=== PATIENT | male | born 1935 | race Caucasian/White ===

== ENCOUNTER 2019-04-24 10:58 | Emergency (ER) | payer MEDICARE, OTHER, SELFPAY ==
[2019-04-24 10:59] VITALS: BP 122/81; PULSE 71; RESP 18; TEMP 36.4; O2SAT 100; BMI 25.4
--- NOTE | 2019-04-24 11:13 | ED.VIS.GEN ---
History of Present Illness Chief Complaint: Disclocation Informant: Patient Onset: Yesterday Context: Sudden Onset Timing: Continuous Narrative: Patient is an 83-year-old male with history of amyloidosis presenting with right shoulder pain. Yesterday he was at the [employer] center and was trying to throw a heavy bag of magazines and when he felt/heard his right shoulder pop. He immediately had pain. It hurts to move his shoulder in any direction. He denies any associated numbness or tingling. He went to see his PCP today who told him that he should go to an orthopedist. Orthopedist then said he should go to the emergency room. Patient then came here. He does not take anything for pain prior to arrival. He denies any other injuries or complaints. He denies any history of any problems with his shoulder. Past Medical History - Allergies and Home Meds Allergies/Adverse Reactions: Allergies No Known Allergies Allergy (Verified 04/24/19 11:03) Primary Care Physician: Ryan Bell III, MD [Primary Care Provider] - Past Medical History: - - Amyloidosis Surgical History: noncontributory Lives: With Family Smoking Status: Former smoker Review of Systems General: Denies: Chills, Fever, Sweats Eyes: Denies: Visual changes - bilaterally, Diplopia ENT: Denies: Rhinorrhea, Sore throat Cardiovascular: Denies: Chest pain, Palpitations Respiratory: Denies: Dyspnea, Cough, Dyspnea on exertion Gastrointestinal: Denies: Abdominal pain, Nausea, Vomiting, Diarrhea, Melena, Hematochezia Genitourinary: Denies: Dysuria, Hematuria, Frequency Musculoskeletal: Reports: Swelling - Right shoulder, Extremity Pain - Right shoulder. Denies: Back pain Skin: Denies: Rash, Wounds Neurological: Denies: Headache, Weakness, Numbness Physical Exam Vital Signs/Narrative: Vital Signs Temp Pulse Resp BP Pulse Ox 04/24/19 10:59 97.6 F L 71 18 122/81 H 100 Inital Vital Signs reviewed: Yes General: Well nourished, Well developed, No Acute Distress Head: Normocephalic, Atraumatic Eyes: Perrl, EOMI ENT: Moist mucous membranes, No rhinorrhea Neck: Supple, Nontender Cardiovascular: Regular rate, Regular rhythm, No murmurs Respiratory: No distress, CTA bilaterally, Chest nontender Abdomen: Soft, Nontender, Nondistended, Normal bowel sounds Back: Nontender, Normal Inspection Extremities: Tenderness - Mild tenderness palpation diffusely of the right shoulder, Edema - Soft tissue swelling over the lateral aspect of the right shoulder/proximal humerus, - - Decreased range of motion of the right shoulder secondary to pain in all planes. Normal range of motion of the elbow and wrist. Skin: Normal color, No rash Neurological: Alert, Oriented x3, Cranial nerves II-XII grossly intact, Normal Strength, Normal Sensation Psychological: Normal affect, Normal Mood Diagnostic/Tx/Re-eval Clinical Impression(s) from Imaging Studies Shoulder X-Ray 04/24/19 11:30 IMPRESSION: Calcific tendinitis. Degenerative changes. Electronically Signed: Zechariah Raj, at 11:55 EST , Service support , - Medical Decision Making Patient has right shoulder pain. He is right-hand dominant. It happened when he was trying to swing a heavy bag of magazines into a dumpster. He heard a popping noise. He does not have an obvious deformity of the joint but he does have significant swelling around his shoulder/proximal humerus. He does have significantly decreased range of motion secondary to pain. X-ray does not show fracture/dislocation however it does show calcific tendinitis. It is likely that he might have either tendinitis or rotator cuff injury that is causing his symptoms. I have a lower suspicion for complete tendon rupture as patient does not have a deformity in his biceps muscle. Patient has already arranged follow-up with Dr. Reis. He is encouraged to keep this and see him next week. As patient has CKD and is allergic to Tylenol he will be prescribed a short course of tramadol for his pain. He is counseled on risk of falls and confusion with this medication. Patient is counseled on signs and symptoms requiring return to the emergency room. Patient verbalizes agreement and understand this plan. Patient discharged home in stable and improved condition. ED Disposition - Plan for ED Patient: Disposition: Home or Assisted Living Diagnosis: Injury of left shoulder, Tendonitis Instructions: Tendonitis, SHOULDER PAIN (Uncertain Cause) Prescriptions: traMADol [Ultram] 50 mg PO BID PRN PRN 3 Days #6 tab PRN Reason: Pain Prescription Printed Referrals: Ryan Bell III, MD [Primary Care Provider] - Additional Instructions: You do not have a dislocation of your shoulder. I suspect you have an injury either to your biceps tendon or your rotator cuff. Your x-ray did show calcific tendinitis of the shoulder. This may also be causing your pain. Follow-up with Ortho next week. You have already been given Dr. Reis's information. Rest the shoulder but do range of motion exercises daily to prevent frozen shoulder. Apply ice. Use sling as needed for comfort. Return to emergency room if you develop any worsening symptoms, or numbness or weakness of the hand.
--- NOTE | 2019-04-24 11:30 | RAD_ITS ---
STUDY: X-RAY - RIGHT SHOULDER REASON FOR EXAM: Male, 83 years old. Pain and limited range of motion. TECHNIQUE: 3 view(s) of the shoulder. COMPARISON: None. FINDINGS: There is mild degenerative arthrosis of the glenohumeral articulation. There is hypertrophic osteoarthrosis of the acromioclavicular joint with inferior osseous spur formation. Normal acromion. Normal humeral head and visualized proximal humerus. There is periarticular soft tissue calcification consistent with a calcific tendinitis. Normal visualized pulmonary apex. RAD/Shoulder min 2 Views IMPRESSION: Calcific tendinitis. Degenerative changes. Electronically Signed: Zechariah Anthony, at 11:55 EST , Service support ,
== END 2019-04-24 12:24 | disposition home or self-care (01) ==
PROVIDERS: Emergency Provider Emergency Medicine; Family Provider Family Medicine; PCP Family Medicine
DX: S49.91XA Unspecified injury of right shoulder and upper arm, initial encounter (principal); X50.0XXA Overexertion from strenuous movement or load, initial encounter; Y93.89 Activity, other specified; Y92.89 Other specified places as the place of occurrence of the external cause; M75.31 Calcific tendinitis of right shoulder; M19.011 Primary osteoarthritis, right shoulder; Z87.891 Personal history of nicotine dependence
CPT/HCPCS: 73030; 99282

== ENCOUNTER 2019-07-20 18:04 | Emergency (ER) | payer MEDICARE, OTHER, SELFPAY ==
[2019-07-20 18:05] VITALS: BP 149/67; PULSE 74; RESP 18; TEMP 36.6; O2SAT 98; BMI 25.0
--- NOTE | 2019-07-20 18:20 | CT_ITS ---
STUDY: CT ABDOMEN AND PELVIS WITHOUT CONTRAST REASON FOR EXAM: Male, 84 years old. RT FLANK PAIN AND DIFFICULTY URINATING. Hx of kidney stones, appendectomy,cholecystectomy,3 vessel CABG, HTN and diabetes. RADIATION DOSAGE (If Supplied By Facility): CTDIvol = ( 8.09 ) mGy, DLP = ( 438.47 ) mGycm TECHNIQUE: Transaxial images were obtained from the dome of the diaphragm to the symphysis pubis without oral contrast, and without intravenous contrast. Sagittal and coronal images were reconstructed. Individualized dose optimization techniques were used for this CT. COMPARISON: None. FINDINGS: There is diffuse interstitial thickening in both lower lobes.. The heart is enlarged and there is mild calcification of coronary arteries and aortic valve leaflets Normal liver. Normal gallbladder and extrahepatic biliary system. Tiny calcified granuloma in normal-sized spleen.. Normal pancreas. Normal bilateral adrenal glands. Tiny nonobstructing calculi in the right kidney Mild right hydroureteronephrosis secondary to tiny distal ureteral calculus measuring approximately 3.5 mm. Small right renal cyst. Tiny nonobstructing left renal calculus Normal visualized stomach. Nonspecific ileus with diffuse fecal retention in the colon.. The appendix is visualized and appears normal. Atherosclerotic changes of the aorta without evidence for aneurysm. Normal inferior vena cava. Normal retroperitoneum. Nonspecific prostatic enlargement in association with incompletely distended thick-walled bladder. Small bilateral fat-containing inguinal hernias.. Lumbar spine demonstrates degenerative change. Postop changes status post bilateral laminectomy and posterior fusion at L4-5. CT/Abdomen/Pelvis without Cont IMPRESSION: Bilateral nephrolithiasis. Right hydroureteronephrosis secondary to small distal ureteral calculus Electronically Signed: Mumtaz Mitchell MD at 19:35 EDT , Service support ,
[2019-07-20] MEDS: 0.9% Normal Saline 1,000 ML 250 ML IV (18:41)
[2019-07-20 18:55] LABS: Bacteria 0 SEEN /hpf (None Seen); Mucous, Urine 0 SEEN /hpf (<or=2+); Squamous Epithelial Cells - UA 0 SEEN /hpf (0-5); White Blood Cells 0 SEEN /hpf (0-5)
[2019-07-20 19:04] LABS: Absolute Lymphocyte Count 1.18 X10^3/uL (0.83-4.51); Basophil# 0.05 X10^3/uL; Basophil% 0.6 % (0-1); Eosinophil# 0.14 X10^3/uL; Eosinophils% 1.7 % (0-5); Hematocrit 41.2 % (40-54); Hemoglobin 13.3 g/dL (13.0-16.5); Lymphocyte # 1.18 X10^3/ul (4.0); Lymphocyte % 14.5 % (19-41); Mean Corp Hgb Conc 32.3 g/dL (32-36); Mean Platelet Vol. 9.8 fl (6.2-12.0); Monocyte# 0.71 X10^3/uL; Monocyte% 8.8 % (0-10); NRBC Flagged by Analyzer 0 % (0-5); Neutrophil # 5.99 X10^3/uL (2.7-7.7); Neutrophil % 73.9 % (47-70); Platelet Count 163 K/mm3 (150-450); RBC Distribution Width CV 12.7 % (11.6-14.6); RBC Distribution Width SD 44.5 fl (35.1-43.9); Red Blood Count 4.29 M/mm3 (4.6-6.2); White Blood Count 8.1 K/mm3 (4.4-11.0)
[2019-07-20 19:12] LABS: Anion Gap 7 (5-15); BUN 20 mg/dL (7-18); BUN/Creat Ratio 15.2 RATIO (10-20); Calcium,Total 9.3 mg/dL (8.5-10.1); Chloride 96 mmol/L (98-107); Creatinine, Serum 1.32 mg/dL (0.70-1.30); EST Glomerular Filtration Rate 55 mL/min (>60); Est Glom Filt Rate - Afr Amer 66 mL/min (>60); Estimated Creatinine Clearance 37.59 ml/min; Glucose 133 mg/dL (74-106); Potassium 3.9 mmol/L (3.5-5.1); Sodium Level 133 mmol/L (136-145)
[2019-07-20 19:21] LABS: Color, Urine Yellow (Yellow); Glucose, Dipstick Normal (Normal); Ketone-Dipstick Negative (Negative); Leukocyte Esterase-Dipstick Negative /ul (Negative); Nitrite-Dipstick Negative (Negative); Occult Blood-Urine 250 /ul (Negative); Protein-Dipstick Negative (Negative); Specific Gravity, Urine 1.025 (1.002-1.030); Urine Bilirubin Dipstick Negative (Negative); Urine Clarity Clear (Clear); Urine Urobilinogen Normal (Normal)
[2019-07-20] MEDS: Ondansetron 4 MG/2 ML Vial IV (19:27)
[2019-07-20] MEDS: Morphine 4 MG/ML Syringe IV (19:27)
[2019-07-20 19:31] LABS: Calcium Oxalate Crystals Ur 1+ /hpf (<or=2+); Red Blood Cells-Urine 10-25 SEEN /hpf (0-5)
--- NOTE | 2019-07-20 19:51 | ED.VIS.GI ---
History of Present Illness Chief Complaint: Flank Pain Narrative: Patient presenting for evaluation secondary to abdominal pain. Patient reports since yesterday he has been dealing with right lower quadrant abdominal pain and right flank pain. He reports that this has gotten somewhat worse over the course of the last day. It is worse with palpation. This been associated with nausea but no vomiting and some urinary hesitancy. He denies any current hematuria although he has had a history of hematuria in the past. Denies any history of kidney stones. Patient is status post cholecystectomy. Patient denies any presence of fevers associated with this. Review of systems otherwise negative. Past Medical History - Allergies and Home Meds Allergies/Adverse Reactions: Allergies No Known Allergies Allergy (Verified 07/20/19 18:04) Primary Care Physician: Ryan Bell III, MD [Primary Care Provider] - Past Medical History: - - Hypertension, hyperlipidemia, diabetes, BPH Surgical History: noncontributory Smoking Status: Former smoker Review of Systems All systems negative except as indicated General: Denies: Chills, Fever, Sweats Eyes: Denies: Visual changes - bilaterally, Diplopia ENT: Denies: Rhinorrhea, Sore throat Cardiovascular: Denies: Chest pain, Palpitations Respiratory: Denies: Dyspnea, Cough, Dyspnea on exertion Gastrointestinal: Reports: Abdominal pain, Nausea. Denies: Vomiting, Diarrhea Genitourinary: Reports: - - Hesitancy Musculoskeletal: Denies: Back pain, Extremity Pain Skin: Denies: Rash, Wounds Neurological: Denies: Headache, Weakness, Numbness Physical Exam Vital Signs/Narrative: Vital Signs Temp Pulse Resp BP Pulse Ox 07/20/19 18:05 97.8 F 74 18 149/67 H 98 Inital Vital Signs reviewed: Yes General: Well nourished, Well developed, No Acute Distress Head: Normocephalic, Atraumatic Eyes: Perrl, EOMI ENT: Moist mucous membranes, No rhinorrhea Neck: Supple, Nontender Cardiovascular: Regular rate, Regular rhythm, Murmur - 3 out of 6 systolic murmur, - - 2+ radial pulses Respiratory: No distress, CTA bilaterally, Chest nontender Abdomen: Soft, Nondistended, Normal bowel sounds, Tender - Right lower quadrant tenderness with no guarding or rebound. Right flank tenderness to percussion. Back: Nontender, Normal Inspection Extremities: Nontender, No edema Skin: Normal color, No rash Neurological: Alert, Oriented x3, Cranial nerves II-XII grossly intact, Normal Strength, Normal Sensation Psychological: Normal affect, Normal Mood Diagnostic/Tx/Re-eval - Medical Decision Making Patient presented secondary to flank pain. Pain was addressed with morphine and Zofran he did have improvements. CBC unremarkable, chemistry shows creatinine of 1.3 with no prior creatinines for comparison. CT abdomen and pelvis by my personal review shows a 6 mm stone in the distal right ureter with hydronephrosis. Patient's pain was improved on repeat evaluation. His urinalysis shows blood but no evidence of infection. Patient at this point I believe is appropriate for initial outpatient treatment of this kidney stone. He was educated on signs and symptoms for which to return. He will be sent home with a course of [place] for treatment of pain. Patient will follow-up with urology. ED Disposition - Plan for ED Patient: Disposition: Home or Assisted Living Diagnosis: Urolithiasis Instructions: KIDNEY STONE w/ Colic Prescriptions: Hydrocodone Bitart/Apap 5-325 [[place] 5MG-325MG] 1 tab PO Q6H PRN PRN 3 Days #12 tab PRN Reason: Pain Prescription Printed Referrals: Db Kc MD [STAFF PHYSICIAN] - 3-5 Days
[2019-07-20 20:06] VITALS: BP 121/96; PULSE 73; RESP 18; O2SAT 95
== END 2019-07-20 20:11 | disposition home or self-care (01) ==
PROVIDERS: Emergency Provider Emergency Medicine; PCP Family Medicine
DX: N13.2 Hydronephrosis with renal and ureteral calculous obstruction (principal); I10 Essential (primary) hypertension; E78.5 Hyperlipidemia, unspecified; E11.9 Type 2 diabetes mellitus without complications; N40.0 Benign prostatic hyperplasia without lower urinary tract symptoms; Z79.82 Long term (current) use of aspirin; Z79.84 Long term (current) use of oral hypoglycemic drugs; Z87.891 Personal history of nicotine dependence
CPT/HCPCS: 74176; 80048; 81001; 85025; 96361; 96374; 96375; 99283; J7030; A4216; J2405

== ENCOUNTER 2020-11-28 21:18 | Inpatient (IN) | payer MEDICARE, OTHER, SELFPAY ==
[2020-11-28 21:19] VITALS: BP 133/74; PULSE 64; RESP 18; TEMP 36.2; O2SAT 98; BMI 24.2
--- NOTE | 2020-11-28 22:18 | EDS_ITS ---
HPI History of Present Illness Chief Complaint: Cellulitis Informant: patient and family Onset/Context/Timing Onset: Days Context: Gradual Onset Timing: Continuous Current Severity: Mild Maximum Severity: Mild Narrative Narrative: 85-year-old male history of cardiac disease, stent, TAVR procedure, diabetes and amyloidosis. Patient on IV placed last week at another hospital. Since Sunday has developed redness in the arm going both down his arm towards his hand now up into his armpit. Denies any fever. Prior similar symptoms: No PFSH PFSH Medical History Hypertension Home Medications Finasteride 5 mg PO DAILY 07/20/19 [History Last Taken Unknown] Tamsulosin Hcl 0.4 mg PO BID 07/20/19 [History Last Taken Unknown] aspirin 81 mg PO DAILY@0800 07/20/19 [History Last Taken Unknown] cholecalciferol (vitamin D3) 2,000 unit PO DAILY 07/20/19 [History Last Taken Unknown] coenzyme Q10 10 mg PO DAILY 07/20/19 [History Last Taken Unknown] fluticasone propionate 2 spray NASAL DAILY 07/20/19 [History Last Taken Unknown] hydrochlorothiazide 12.5 mg PO DAILY 07/20/19 [History Last Taken Unknown] levothyroxine 75 mcg PO DAILY 07/20/19 [History Last Taken Unknown] metformin 500 mg PO TIDCM 07/20/19 [History Last Taken Unknown] metoprolol tartrate 25 mg PO BID 07/20/19 [History Last Taken Unknown] nitroglycerin 0.4 mg SL PRN PRN 07/20/19 [History Last Taken Unknown] pregabalin 50 mg PO BID 07/20/19 [History Last Taken Unknown] simvastatin 20 mg PO DAILY 07/20/19 [History Last Taken Unknown] tafamidis 61 mg PO DAILY 07/20/19 [History Last Taken Unknown] clopidogrel 75 mg PO DAILY 11/28/20 [History Last Taken Unknown] Allergy/AdvReac Type Severity Reaction Status Date / Time No Known Allergies Allergy Verified 11/28/20 21:22 Social History Smoking Status: Former smoker ROS ROS ED ROS Narrative Denies recent illness. Review of Systems ROS Unobtainable: Denies due to encephalopathy Constitutional Constitutional ED: Denies chills or fever(s) Eyes Eyes: Denies change in vision ENT ENT ED: Denies ear pain or sore throat Cardiovascular Cardiovascular: Denies chest pain Respiratory/Chest Respiratory/Chest: Denies dyspnea Gastrointestinal Gastrointestinal: Denies abdominal pain Genitourinary Genitourinary ED: Denies dysuria Musculoskeletal Musculoskeletal: Denies myalgias Integumentary Reports rash Neurologic Neurologic: Denies headache(s) Psychiatric Psychiatric: Denies depression Endocrine Endocrinology: Denies polyuria Allergic/Immunologic Allergic/Immunologic ED: Denies urticaria EXAM Physical Exam Narrative Exam Narrative: Older male no acute distress vital signs stable afebrile. Family at bedside. H EENT exam unremarkable. Lungs clear to auscultation. Heart regular rhythm. Abdomen soft nontender normal bowel sounds no peritoneal signs. Moving all 4 extremities. Neurovascularly intact. His right arm and antecubital area there is definitely cellulitis which extends both distally towards the hand and lymphangitic streaking up into his armpit with lymphadenopathy and tenderness. He has normal underwriting technician strength, touch sensation and radial pulse in the right hand. There does not appear to be involvement in the shoulder, elbow or wrist joints. Const Vital Signs: 11/28/20 21:19 Temperature 97.1 F L Temperature Source Oral Pulse Rate 64 Respiratory Rate 18 Blood Pressure 133/74 H Blood Pressure Mean 93 Pulse Ox 98 Oxygen Delivery Method Room Air Positive well nourished and well developed General Appearance ED: well developed HEENT Reports moist mucous membranes Negative for trauma or tenderness Eyes PERRL and EOMs intact bilaterally Neck no lymphadenopathy, supple and no JVD General: Negative for tenderness Chest Wall inspection of chest normal and palpation of chest normal Resp normal respiratory effort and clear to auscultation bilaterally Cardio regular rate, regular rhythm, S1 normal heart sound, S2 normal heart sound and no murmurs GI normal to inspection, nondistended, normoactive bowel sounds, non-tender and non-distended Palpation: soft Back/Spine no CVA tenderness Extremity normal to inspection Extremity Narrative: Extremities unremarkable except the right arm has obvious cellulitis from just proximal to the wrist all the way up into the armpit. With lymphadenopathy and tenderness. He has normal range of motion in the hand is neurovascularly intact. Neuro oriented x3 and CN's II-XII intact bilaterally Sensorium / Orientation: alert Motor Exam: strength 5/5 throughout Psych mental status grossly normal Skin no wounds Rashes: rashes noted MDM MDM MDM Narrative Medical decision making narrative: 85-year-old male has a IV site cellulitis with lymphangitic spread. Involves most of the right arm. He will be started on IV antibiotics and labs are being obtained. Most likely will need admitted overnight. Repeat exam patient is doing well. He is already been started on IV antibiotics. No changes at 11:25 PM. I have the hospitalist on page for admission. Lab Data Attestation: I reviewed the patient's lab results. Lab results narrative: CBC White count 6. Hemoglobin 11.6 electrolytes unremarkable gap of 6. Creatinine 1.53 has a history of renal insufficiency. Labs: Laboratory Results - last 24 hr 11/28/20 11/28/20 22:28 22:28 WBC 6.8 RBC 3.81 L Hgb 11.6 L Hct 36.3 L MCV 95.3 H MCH 30.4 MCHC 32.0 RDW Std Deviation 44.8 H RDW Coeff of Dina 12.9 Plt Count 136 L MPV 9.8 Immature Gran % (Auto) 0.300 Neut % (Auto) 52.2 Lymph % (Auto) 28.6 Rankin % (Auto) 12.1 H Eos % (Auto) 5.8 H Baso % (Auto) 1.0 Absolute Neuts (auto) 3.5 Absolute Lymphs (auto) 1.93 Nucleated RBC % 0 Sodium 137 Potassium 3.8 Chloride 102 Carbon Dioxide 29.0 Anion Gap 6 BUN 25 H Creatinine 1.53 H Estim Creat Clear Calc 31.85 Est GFR (MDRD) Af Amer 56 L Est GFR (MDRD) Non-Af 46 L BUN/Creatinine Ratio 16.3 Glucose 108 H Calcium 9.5 Discharge Plan Triage Chief Complaint: Cellulitis ED Provider: Terrell Juan Dx/Rx/DC Orders Clinical Impression: Cellulitis of arm, right, Diabetes Prescriptions: No Action metformin 500 MG tablet 500 mg PO TIDCM RF: 0 coenzyme Q10 10 MG capsule 10 mg PO DAILY RF: 0 levothyroxine 75 MCG tablet 75 mcg PO DAILY RF: 0 simvastatin 20 MG tablet 20 mg PO DAILY RF: 0 hydrochlorothiazide 12.5 MG capsule 12.5 mg PO DAILY RF: 0 nitroglycerin 0.4 MG tablet, sublingual 0.4 mg SL PRN PRN (Reason: CHEST PAIN) RF: 0 aspirin 81 MG tablet,chewable 81 mg PO DAILY@0800 RF: 0 fluticasone propionate 1 SPRAY spray,suspension 2 spray NASAL DAILY RF: 0 metoprolol tartrate 25 MG tablet 25 mg PO BID RF: 0 pregabalin 50 MG capsule 50 mg PO BID RF: 0 cholecalciferol (vitamin D3) 1,000 UNIT tablet 2,000 unit PO DAILY RF: 0 tafamidis 61 MG capsule 61 mg PO DAILY RF: 0 Finasteride 5 MG tablet 5 mg PO DAILY RF: 0 Tamsulosin Hcl 0.4 MG capsule 0.4 mg PO BID RF: 0 clopidogrel 75 mg Tablet 75 mg PO DAILY RF: 0 Primary Care Provider: Adriano Bailey Referrals: Adriano Bailey MD [Primary Care Provider] - Disposition Disposition: Acute Care Hospital [facility]
[2020-11-28 22:49] LABS: Anion Gap 6 (5-15); BUN 25 mg/dL (7-18); BUN/Creat Ratio 16.3 RATIO (10-20); Calcium,Total 9.5 mg/dL (8.5-10.1); Chloride 102 mmol/L (98-107); Creatinine, Serum 1.53 mg/dL (0.70-1.30); EST Glomerular Filtration Rate 46 mL/min (>60); Est Glom Filt Rate - Afr Amer 56 mL/min (>60); Estimated Creatinine Clearance 31.85 ml/min; Glucose 108 mg/dL (74-106); Potassium 3.8 mmol/L (3.5-5.1); Sodium Level 137 mmol/L (136-145)
[2020-11-28 22:50] LABS: Absolute Lymphocyte Count 1.93 X10^3/uL (0.83-4.51); Absolute Neutrophil Count 3.5 X10^3/uL (2.0-7.7); Basophil# 0.07 X10^3/uL; Eosinophil# 0.39 X10^3/uL; Eosinophils% 5.8 % (0-5); Hematocrit 36.3 % (40-54); Hemoglobin 11.6 g/dL (13.0-16.5); Lymphocyte # 1.93 X10^3/ul (0.83-4.51); Lymphocyte % 28.6 % (19-41); Mean Corpuscular Hgb 30.4 pg (27.0-32.0); Mean Corpuscular Volume 95.3 fL (80-94); Mean Platelet Vol. 9.8 fl (6.2-12.0); Monocyte# 0.82 X10^3/uL; Monocyte% 12.1 % (0-10); NRBC Flagged by Analyzer 0 % (0-5); Neutrophil # 3.52 X10^3/uL (2.7-7.7); Neutrophil % 52.2 % (47-70); Platelet Count 136 K/mm3 (150-450); RBC Distribution Width CV 12.9 % (11.6-14.6); RBC Distribution Width SD 44.8 fl (35.1-43.9); Red Blood Count 3.81 M/mm3 (4.6-6.2); White Blood Count 6.8 K/mm3 (4.4-11.0)
[2020-11-28 23:19] VITALS: BP 125/76; PULSE 64; RESP 16; O2SAT 99
--- NOTE | 2020-11-28 23:25 | HP.PCM.HOS_ITS ---
HPI - General General Date of Admission: 11/28/20 HPI Narrative ALEXANDRE NASH, is a 85 M with an extensive PMH as outlined who presents via the ED on 11/28/2020 with a complaint of redness of his UEs. He went to an outside hospital - [facility] and had an IV line placed in his arm at another hospital ~ 1 week ago. He developed redness going down his arm towards his hand, and also upwards towards his armpit. He denied any fever and chills, and denied any shortness of breath, cough, chest pain, nausea or vomiting. REview of systems was otherwise negative. He is being admitted to be managed for cellulitis and thrombophlebitis of the LUE. Vitals were BP of 133/74, RI of 64, RR of 18 and temp of 97.1F. CBC showed wbc of 6.8 and Hb of 11.6 and platelets of 136. BMP showed sodium of 137 with K of 3.8, Cr of 1.53 but otherwise WNL. [facility] Medical History (Updated 11/29/20 @ 00:43 by Hiren Torres) Coronary artery disease CPAP (continuous positive airway pressure) dependence Former smoker Hearing loss, left Hearing loss, right Hypertension Hypothyroidism Kidney stones Sleep apnea Home Medications Finasteride 5 mg PO QHS 07/20/19 [History Last Taken 11/28/20] Tamsulosin Hcl 0.4 mg PO BID 07/20/19 [History Last Taken 11/28/20] cholecalciferol (vitamin D3) 2,000 unit PO DAILY 07/20/19 [History Last Taken 11/28/20] coenzyme Q10 10 mg PO DAILY 07/20/19 [History Last Taken 11/28/20] fluticasone propionate 2 spray NASAL DAILY 07/20/19 [History Last Taken Unknown] hydrochlorothiazide 12.5 mg PO DAILY 07/20/19 [History Last Taken 11/28/20] levothyroxine 75 mcg PO DAILY 07/20/19 [History Last Taken 11/28/20] metformin 500 mg PO TIDCM 07/20/19 [History Last Taken 11/28/20] metoprolol tartrate 25 mg PO BID 07/20/19 [History Last Taken 11/28/20] nitroglycerin 0.4 mg SL PRN PRN 07/20/19 [History Last Taken Unknown] pregabalin 50 mg PO BID 07/20/19 [History Last Taken 11/28/20] simvastatin 20 mg PO QHS 07/20/19 [History Last Taken 11/28/20] tafamidis 61 mg PO DAILY 07/20/19 [History Last Taken 11/28/20] clopidogrel 75 mg PO DAILY 11/28/20 [History Last Taken 11/28/20] Allergy/AdvReac Type Severity Reaction Status Date / Time No Known Allergies Allergy Verified 11/28/20 21:22 Surgical History (Updated 11/29/20 @ 00:43 by Hiren Torres) History of cholecystectomy History of coronary artery stent placement Hx of CABG Social History Smoking Status: Former smoker ROS Review of Systems ROS Unobtainable: Denies due to encephalopathy Constitutional Constitutional: Denies anorexia, change in weight, chills, fatigue, fever(s) or weakness Eyes Eyes: Denies double vision ENT HEENT: Denies dysphagia, hearing loss, nasal congestion or nasal discharge Cardiovascular Cardiovascular: Denies chest pain, dyspnea on exertion, edema, lightheadedness, orthopnea or palpitations Respiratory/Chest Respiratory/Chest: Denies cough, dyspnea, productive cough, shortness of breath at rest or shortness of breath with exertion Gastrointestinal Gastrointestinal: Denies abdominal pain, diarrhea, nausea or vomiting Genitourinary Genitourinary: Denies burning urination, dysuria, urinary frequency or urinary urgency Musculoskeletal Musculoskeletal: Denies arthralgias, joint swelling or neck pain Neurologic Neurologic: Denies confusion, dizziness, focal weakness, seizure-like activity or seizures Psychiatric Psychiatric: Denies anxiety or depression Endocrine Endocrinology: Denies change in body appearance Vital Signs Vital Signs Vital Signs: 11/28/20 21:19 Temperature 97.1 F L Temperature Source Oral Pulse Rate 64 Respiratory Rate 18 Blood Pressure 133/74 H Blood Pressure Mean 93 Pulse Ox 98 Oxygen Delivery Method Room Air Weight Weight: 150 lb Body Mass Index (BMI) 24.2 Physical Exam Const alert, oriented x3 and no apparent distress General Appearance: cooperative HEENT normocephalic, head/scalp atraumatic, hearing grossly normal bilaterally and moist oral mucous membranes Eyes PERRL, EOMs intact bilaterally and conjunctivae normal Neck no lymphadenopathy, supple and no carotid bruits Resp normal respiratory effort, no retractions, no use of accessory muscles and clear to auscultation bilaterally Cardio regular rate, regular rhythm, S1 normal heart sound, S2 normal heart sound and no murmurs GI normal to inspection, nondistended, normoactive bowel sounds, soft to palpation, non-tender and non-distended Extremity normal to inspection, full ROM and no clubbing, cyanosis or edema Peripheral Pulses: Yes pulses 2+ throughout Skin Skin Narrative: erythema and differential warmth over inner part RUE, extending from above the wrist all the way to the axilla, with tender lymphadenopathy in the right axilla. Neuro oriented x3 Sensorium / Orientation: awake and alert Psych affect normal Results Lab / Micro Data Result Diagrams: 11/29/20 05:44 11/29/20 05:44 Labs: Laboratory Results - last 24 hr 11/28/20 22:28: WBC 6.8, RBC 3.81 L, Hgb 11.6 L, Hct 36.3 L, MCV 95.3 H, MCH 30.4, MCHC 32.0, RDW Std Deviation 44.8 H, RDW Coeff of Dina 12.9, Plt Count 136 L, MPV 9.8, Immature Gran % (Auto) 0.300, Neut % (Auto) 52.2, Lymph % (Auto) 28.6, Marshall % (Auto) 12.1 H, Eos % (Auto) 5.8 H, Baso % (Auto) 1.0, Absolute Neuts (auto) 3.5, Absolute Lymphs (auto) 1.93, Nucleated RBC % 0 11/28/20 22:28: Sodium 137, Potassium 3.8, Chloride 102, Carbon Dioxide 29.0, Anion Gap 6, BUN 25 H, Creatinine 1.53 H, Estim Creat Clear Calc 31.85, Est GFR (MDRD) Af Amer 56 L, Est GFR (MDRD) Non-Af 46 L, BUN/Creatinine Ratio 16.3, Glucose 108 H, Calcium 9.5 Assessment & Plan Assessment/Plan (1) Cellulitis of arm, right: PLAN: # Cellulitis and thrombophlebitis of LUE * due to IV insertion last week * admit to med surg * get blood cultures * start IV unasyn * po tylenol prn for pain * #CKD 3 * CR is 1.53, baseline in system from july 2019 is 1.32 * hydate very gently with IVF * #Type 2 diabetes mellitus * hold metformin o/a of elevated Cr * Insulin sliding scale * accuchecks ACHS * #Hypertension: on metoprolol and HCTZ #BPH: on flomax DVT prophylaxis: lovenox Code status: full code * Patient counseled extensively about different types of CODE STATUS including full code, DNR CCA and DNR CCA. Patient elects to be full code. Total [id number] time 16 minutes. Charges/Coding Visit Charges Inpatient E&M: 26168 Init Hosp L3 Procedures Hospitalists Procedures: 11647 Advncd Care Plan 30 Min
[2020-11-28 23:59] VITALS: BP 125/76; PULSE 63; RESP 14; TEMP 36.3; O2SAT 99
[2020-11-29] VITALS (8 sets, daily range): BP systolic 97–134; BP diastolic 51–69; PULSE 56–68; RESP 16–18; TEMP 36.2–36.9; O2SAT 95–100; BMI 25.2
[2020-11-29] MEDS: 0.9% Normal Saline 1,000 ML 75 ML IV ×2 (00:59→15:38)
[2020-11-29 05:55] LABS: Absolute Lymphocyte Count 1.71 X10^3/uL (0.83-4.51); Absolute Neutrophil Count 3.6 X10^3/uL (2.0-7.7); Basophil# 0.05 X10^3/uL; Basophil% 0.8 % (0-1); Eosinophil# 0.42 X10^3/uL; Eosinophils% 6.4 % (0-5); Hematocrit 33.4 % (40-54); Hemoglobin 10.8 g/dL (13.0-16.5); Lymphocyte # 1.71 X10^3/ul (0.83-4.51); Lymphocyte % 25.9 % (19-41); Mean Corp Hgb Conc 32.3 g/dL (32-36); Mean Corpuscular Hgb 30.4 pg (27.0-32.0); Mean Corpuscular Volume 94.1 fL (80-94); Mean Platelet Vol. 9.6 fl (6.2-12.0); Monocyte# 0.77 X10^3/uL; Monocyte% 11.6 % (0-10); NRBC Flagged by Analyzer 0 % (0-5); Neutrophil # 3.64 X10^3/uL (2.7-7.7); Platelet Count 122 K/mm3 (150-450); RBC Distribution Width CV 12.7 % (11.6-14.6); RBC Distribution Width SD 44.2 fl (35.1-43.9); Red Blood Count 3.55 M/mm3 (4.6-6.2); White Blood Count 6.6 K/mm3 (4.4-11.0)
[2020-11-29 06:17] LABS: Anion Gap 6 (5-15); BUN 25 mg/dL (7-18); BUN/Creat Ratio 18.5 RATIO (10-20); Calcium,Total 8.8 mg/dL (8.5-10.1); Chloride 106 mmol/L (98-107); Creatinine, Serum 1.35 mg/dL (0.70-1.30); EST Glomerular Filtration Rate 53 mL/min (>60); Est Glom Filt Rate - Afr Amer 65 mL/min (>60); Glucose 92 mg/dL (74-106); Potassium 3.6 mmol/L (3.5-5.1); Sodium Level 139 mmol/L (136-145)
[2020-11-29] MEDS: Levothyroxine 75 MCG Tablet PO (06:35)
[2020-11-29 07:00] LABS: Bedside Glucose 94 mg/dL (70-110)
[2020-11-29] MEDS: Cholecalciferol (VIT D3) 25 MCG TABLET (1,000 UNITS) 50 MCG PO (08:50)
[2020-11-29] MEDS: hydroCHLOROthiazide 12.5mg 12.5 MG PO (08:50)
[2020-11-29] MEDS: Metoprolol Tartrate 25 MG Tablet PO (08:51)
[2020-11-29] MEDS: Finasteride 5 MG Tablet PO (08:51)
[2020-11-29] MEDS: Pregabalin 50 MG Capsule PO ×2 (08:54→21:30)
--- NOTE | 2020-11-29 10:29 | PCM.PN.HOSP ---
Subjective Subjective Patient was seen and examined. He denied any fever and chills. His right upper extremity swelling has improved. The redness has not gone beyond the marked borders. Objective Data Objective Data Vital Signs: Vital Signs Temp Pulse Resp BP Pulse Ox 97.7 F L 64 16 124/57 H 98 11/29/20 08:27 11/29/20 08:51 11/29/20 08:27 11/29/20 08:27 11/29/20 08:27 Oxygen Delivery Method Room Air Weight: 68.7 kg Body Mass Index (BMI) 25.2 Intake & Output: Intake and Output for Last 24 Hours 11/27/20 11/28/20 11/29/20 23:59 23:59 23:59 Intake Total 100 / 100 530.75 / 530.75 Balance 100 / 100 530.75 / 530.75 Lab / Micro Data Result Diagrams: 11/29/20 05:44 11/29/20 05:44 Labs: Laboratory Results - last 24 hr 11/28/20 22:28: WBC 6.8, RBC 3.81 L, Hgb 11.6 L, Hct 36.3 L, MCV 95.3 H, MCH 30.4, MCHC 32.0, RDW Std Deviation 44.8 H, RDW Coeff of Dina 12.9, Plt Count 136 L, MPV 9.8, Immature Gran % (Auto) 0.300, Neut % (Auto) 52.2, Lymph % (Auto) 28.6, [place] % (Auto) 12.1 H, Eos % (Auto) 5.8 H, Baso % (Auto) 1.0, Absolute Neuts (auto) 3.5, Absolute Lymphs (auto) 1.93, Nucleated RBC % 0 11/28/20 22:28: Sodium 137, Potassium 3.8, Chloride 102, Carbon Dioxide 29.0, Anion Gap 6, BUN 25 H, Creatinine 1.53 H, Estim Creat Clear Calc 31.85, Est GFR (MDRD) Af Amer 56 L, Est GFR (MDRD) Non-Af 46 L, BUN/Creatinine Ratio 16.3, Glucose 108 H, Calcium 9.5 11/29/20 05:44: WBC 6.6, RBC 3.55 L, Hgb 10.8 L, Hct 33.4 L, MCV 94.1 H, MCH 30.4, MCHC 32.3, RDW Std Deviation 44.2 H, RDW Coeff of Dina 12.7, Plt Count 122 L, MPV 9.6, Immature Gran % (Auto) 0.300, Neut % (Auto) 55.0, Lymph % (Auto) 25.9, [place] % (Auto) 11.6 H, Eos % (Auto) 6.4 H, Baso % (Auto) 0.8, Absolute Neuts (auto) 3.6, Absolute Lymphs (auto) 1.71, Nucleated RBC % 0 11/29/20 05:44: Sodium 139, Potassium 3.6, Chloride 106, Carbon Dioxide 27.0, Anion Gap 6, BUN 25 H, Creatinine 1.35 H, Estim Creat Clear Calc 34.80, Est GFR (MDRD) Af Amer 65, Est GFR (MDRD) Non-Af 53 L, BUN/Creatinine Ratio 18.5, Glucose 92, Calcium 8.8 11/29/20 06:37: POC Glucose 94 Physical Exam Narrative Physical exam: General: Alert, Oriented x3, Cooperative, No apparent distress, Well developed HEENT: Atraumatic Oral: Moist Mucosa Neck: Supple Lungs: Clear to auscultation Cardiovascular: HS I+II, regular, no murmurs Abdomen: Bowel Sounds Present, Soft, Non Tender Extremities: No edema Assessment & Plan Assessment/Plan (1) Cellulitis of arm, right: (2) Diabetes: QUALIFIERS: Diabetes mellitus type: type 2 Diabetes mellitus remote computer terminal operator insulin use: without remote computer terminal operator use Diabetes mellitus complication status: with other specified complication Qualified Code(s): E11.69 - Type 2 diabetes mellitus with other specified complication PLAN: 1. Acute cellulitis, right, improving Will continue on IV Unasyn 2. Type 2 DM, BS is controlled, continue on metformin, will continue with ISS 3. Hypertension, controlled, continue on metoprolol and HCTZ Charges/Coding Visit Charges Inpatient E&M: 33256 Subs Hosp L2
[2020-11-29] MEDS: Insulin Lispro 100 UNIT/ML INSULN.PEN SC (11:04)
[2020-11-29 11:16] LABS: Bedside Glucose 176 mg/dL (70-110)
--- NOTE | 2020-11-29 14:30 | CASEMGMT ---
MARCO ALDRICH Assessment: Face to Face with pt for initial transition planning/care coordination assessment. RN VALDEMAR introduced self and role at [facility], pt voices understanding and consents to assessment. Pt is A/O x4 and answers all questions appropriately at this time. Pt lying in bed in no distress. Care providers, pharmacy, and demographics verified/updated. Admitting Dx: cellulitis PCP: Leo Specialists: Sarah Elaine Pharmacy: [facility] Insurance: Alicia DANGELO Sr Supp Prescription Benefit: yes, pt [facility] LW/HPOA: Pt denies having a LW/DPOA. LNOK: Jeannie Tanger Living Arrangements: Pt lives with sig other and sig other's mother in a single story house with 2-3 steps to enter without rail. Pt states he is I in ADL's and denies concerns at home. Transportation: Pt drives self and denies concerns with transportation. DME/HHC/SNF: Pt states he has a CPAP without O2. States he [facility] the [facility]. Pt denies previous HHC or SNF stays and laughs at the question. Pt states he has horses and wants to get back home to tend to them. Pt states no concerns with going home at time of dc. Pt states no further concerns/needs. CM to follow. Advised pt to ask CM if any further question/concerns/needs arise, voices understanding. Pt Goal: Home Plan: Home
[2020-11-29 16:20] LABS: Bedside Glucose 105 mg/dL (70-110)
[2020-11-29] MEDS: metFORMIN HCl 500 MG Tablet PO (17:50)
[2020-11-29] MEDS: Tamsulosin HCl 0.4 MG Capsule PO (17:50)
[2020-11-29] MEDS: Docusate Sodium 100 MG Capsule PO (21:29)
[2020-11-29] MEDS: Atorvastatin Calcium 10 MG Tablet PO (21:29)
[2020-11-29] MEDS: Fluticasone 0.05% 1 SPRAY NASAL.SRY 2 SPRAY NASAL (21:29)
[2020-11-29] MEDS: MELATONIN 3 MG TABLET PO (21:30)
[2020-11-29] MEDS: Clopidogrel Bisulfate 75 MG Tablet PO (21:30)
[2020-11-29 21:50] LABS: Bedside Glucose 145 mg/dL (70-110)
[2020-11-30 02:26] VITALS: BP 97/52; PULSE 63; RESP 16; TEMP 36.8; O2SAT 97
[2020-11-30] MEDS: Levothyroxine 75 MCG Tablet PO (06:22)
[2020-11-30 06:40] LABS: Bedside Glucose 103 mg/dL (70-110)
[2020-11-30 09:10] VITALS: BP 121/63; PULSE 78; RESP 16; TEMP 36.6; O2SAT 99
[2020-11-30 09:14] VITALS: PULSE 76
[2020-11-30] MEDS: hydroCHLOROthiazide 12.5mg 12.5 MG PO (09:14)
[2020-11-30] MEDS: Metoprolol Tartrate 25 MG Tablet PO (09:14)
[2020-11-30] MEDS: Cholecalciferol (VIT D3) 25 MCG TABLET (1,000 UNITS) 50 MCG PO (09:15)
[2020-11-30] MEDS: Finasteride 5 MG Tablet PO (09:15)
[2020-11-30] MEDS: metFORMIN HCl 500 MG Tablet PO (09:18)
[2020-11-30] MEDS: Pregabalin 50 MG Capsule PO (09:19)
--- NOTE | 2020-11-30 09:20 | PCM.DC ---
Discharge Instructions Diet Discharge Diet: Low fat / Low cholesterol, 1800 Calorie Control Diet and 2000 mg Sodium Diet Activity Discharge Activity: Return to Normal Activity Follow Up Care Test Results: Test results from this visit will be discussed in further detail at your follow-up appointment, if applicable. Discharge Plan Admission Admit Date/Time: 11/28/20 23:37 Primary Reason for Your Visit: Acute left upper extremity cellulitis Attending Provider: Abigail Rouse Primary Care Provider: Adriano Bailey Instructions Additional Instructions / Restrictions: Complete your antibiotics. Let your primary care doctor know if you have recurrence of the redness in your upper extremity of fever or chills. Continue to keep active. Follow-up with your primary care doctor within 1 to 2 weeks. Discharge Orders/Prescriptions Prescriptions: New amoxicillin-pot clavulanate [Augmentin] 500-125 mg tablet 1 tab PO BID Qty: 12 RF: 0 Continued metformin 500 MG tablet 500 mg PO TIDCM RF: 0 coenzyme Q10 10 MG capsule 10 mg PO DAILY RF: 0 levothyroxine 75 MCG tablet 75 mcg PO DAILY RF: 0 simvastatin 20 MG tablet 20 mg PO QHS RF: 0 hydrochlorothiazide 12.5 MG capsule 12.5 mg PO DAILY RF: 0 nitroglycerin 0.4 MG tablet, sublingual 0.4 mg SL PRN PRN (Reason: CHEST PAIN) RF: 0 fluticasone propionate 1 SPRAY spray,suspension 2 spray NASAL DAILY RF: 0 metoprolol tartrate 25 MG tablet 25 mg PO BID RF: 0 pregabalin 50 MG capsule 50 mg PO BID RF: 0 cholecalciferol (vitamin D3) 1,000 UNIT tablet 2,000 unit PO DAILY RF: 0 tafamidis 61 MG capsule 80 mg PO DAILY RF: 0 Finasteride 5 MG tablet 5 mg PO QHS RF: 0 Tamsulosin Hcl 0.4 MG capsule 0.4 mg PO BID RF: 0 clopidogrel 75 mg Tablet 75 mg PO DAILY RF: 0 docusate sodium 100 mg Tablet 100 mg PO DAILY RF: 0 Referrals / Follow Up: Adriano Bailey MD [Primary Care Provider] - Within 2 Weeks Disposition Disposition (needs filled in before D/C Order can be placed): Home, Self Care
--- NOTE | 2020-11-30 10:11 | DS.PCM_ITS ---
Providers Date of Admission: 11/28/20 Date of Discharge: 11/30/20 Primary Care Physician: Dr. Adriano Bailey MD Reason For Visit: CELLULILTIS Diagnosis Discharge Diagnosis (1) Cellulitis of arm, right: Status: Resolved Code(s): L03.113 - Cellulitis of right upper limb (2) Diabetes: Status: Chronic Code(s): E11.9 - Type 2 diabetes mellitus without complications Qualifiers: Diabetes mellitus complication status: with other specified complication Diabetes mellitus continuous churn buttermaker insulin use: without half-way use Diabetes julianne fall type: type 2 Qualified Code(s): E11.69 - Type 2 diabetes mellitus with other specified complication Medications at Discharge Home Medications Finasteride 5 mg PO QHS 07/20/19 Tamsulosin Hcl 0.4 mg PO BID 07/20/19 cholecalciferol (vitamin D3) 2,000 unit PO DAILY 07/20/19 coenzyme Q10 10 mg PO DAILY 07/20/19 fluticasone propionate 2 spray NASAL DAILY 07/20/19 hydrochlorothiazide 12.5 mg PO DAILY 07/20/19 levothyroxine 75 mcg PO DAILY 07/20/19 metformin 500 mg PO TIDCM 07/20/19 metoprolol tartrate 25 mg PO BID 07/20/19 nitroglycerin 0.4 mg SL PRN PRN 07/20/19 pregabalin 50 mg PO BID 07/20/19 simvastatin 20 mg PO QHS 07/20/19 tafamidis 80 mg PO DAILY 07/20/19 clopidogrel 75 mg PO DAILY 11/28/20 docusate sodium 100 mg PO DAILY 11/29/20 amoxicillin-pot clavulanate [Augmentin] 1 tab PO BID #12 tab 11/30/20 Hospital Course Operations None Procedures None Summary of Care Provided Minutes Spent on Discharge: 45 Hospital Course: 85-year-old male with multiple comorbidities who presented with redness of his right upper extremity. He was recently in an outside hospital and had an IV line placed in his. He developed redness going up his towards his hand ended up his armpit. He was admitted to the [facility] floor managed on IV Unasyn for cellulitis and thrombophlebitis of the RUE. Patient continued to improve. He was discharged on Augmentin to complete 1 week treatment. Follow-up with his primary care doctor in the outpatient. Physical Exam Narrative Physical exam: General: Alert, Oriented x3, Cooperative, No apparent distress, Well developed HEENT: Atraumatic Oral: Moist Mucosa Neck: Supple Lungs: Clear to auscultation Cardiovascular: HS I+II, regular, no murmurs Abdomen: Bowel Sounds Present, Soft, Non Tender Extremities: No edema, erythema of right upper extremity Weight / BMI Weight Weight: 68.7 kg Body Mass Index (BMI) 25.2 ABG / Lab / Microbiology Data Result Diagrams: 11/29/20 05:44 11/29/20 05:44 Laboratory: Laboratory Results - last 24 hr 11/29/20 11:01: POC Glucose 176 H 11/29/20 16:05: POC Glucose 105 11/29/20 21:27: POC Glucose 145 H 11/30/20 06:24: POC Glucose 103 D/C Instructions Discharge Diet: Low fat / Low cholesterol, 1800 Calorie Control Diet and 2000 mg Sodium Diet Meaningful Use Info Meaningful Use Diagnoses (Choose all that apply): None applicable Discharge Plan Admission Admit Date/Time: 11/28/20 23:37 Primary Reason for Your Visit: Acute left upper extremity cellulitis Attending Provider: Abigail Rouse Primary Care Provider: Adriano Bailey Instructions Additional Instructions / Restrictions: Complete your antibiotics. Let your primary care doctor know if you have recurrence of the redness in your upper extremity of fever or chills. Continue to keep active. Follow-up with your primary care doctor within 1 to 2 weeks. Discharge Orders/Prescriptions Prescriptions: New amoxicillin-pot clavulanate [Augmentin] 500-125 mg tablet 1 tab PO BID Qty: 12 RF: 0 Continued metformin 500 MG tablet 500 mg PO TIDCM RF: 0 coenzyme Q10 10 MG capsule 10 mg PO DAILY RF: 0 levothyroxine 75 MCG tablet 75 mcg PO DAILY RF: 0 simvastatin 20 MG tablet 20 mg PO QHS RF: 0 hydrochlorothiazide 12.5 MG capsule 12.5 mg PO DAILY RF: 0 nitroglycerin 0.4 MG tablet, sublingual 0.4 mg SL PRN PRN (Reason: CHEST PAIN) RF: 0 fluticasone propionate 1 SPRAY spray,suspension 2 spray NASAL DAILY RF: 0 metoprolol tartrate 25 MG tablet 25 mg PO BID RF: 0 pregabalin 50 MG capsule 50 mg PO BID RF: 0 cholecalciferol (vitamin D3) 1,000 UNIT tablet 2,000 unit PO DAILY RF: 0 tafamidis 61 MG capsule 80 mg PO DAILY RF: 0 Finasteride 5 MG tablet 5 mg PO QHS RF: 0 Tamsulosin Hcl 0.4 MG capsule 0.4 mg PO BID RF: 0 clopidogrel 75 mg Tablet 75 mg PO DAILY RF: 0 docusate sodium 100 mg Tablet 100 mg PO DAILY RF: 0 Referrals / Follow Up: Adriano Bailey MD [Primary Care Provider] - Within 2 Weeks Disposition Disposition (needs filled in before D/C Order can be placed): Home, Self Care Charges/Coding Visit Charges Inpatient E&M: 47310 Disch Hosp
--- NOTE | 2020-11-30 11:07 | PHA.DC.MC ---
Pharmacy Service has performed discharge medication reconciliation and counseling for this patient. 1. AUGMENTIN 500MG PO BID X 6 DAYS The patient's discharge medication list was reviewed for discrepancies and discrepancies were resolved. Home Medications Finasteride 5 mg PO QHS 07/20/19 Tamsulosin Hcl 0.4 mg PO BID 07/20/19 cholecalciferol (vitamin D3) 2,000 unit PO DAILY 07/20/19 coenzyme Q10 10 mg PO DAILY 07/20/19 fluticasone propionate 2 spray NASAL DAILY 07/20/19 hydrochlorothiazide 12.5 mg PO DAILY 07/20/19 levothyroxine 75 mcg PO DAILY 07/20/19 metformin 500 mg PO TIDCM 07/20/19 metoprolol tartrate 25 mg PO BID 07/20/19 nitroglycerin 0.4 mg SL PRN PRN 07/20/19 pregabalin 50 mg PO BID 07/20/19 simvastatin 20 mg PO QHS 07/20/19 tafamidis 80 mg PO DAILY 07/20/19 clopidogrel 75 mg PO DAILY 11/28/20 docusate sodium 100 mg PO DAILY 11/29/20 amoxicillin-pot clavulanate [Augmentin] 1 tab PO BID #12 tab 11/30/20 The patient was counseled on the following discharge medications and changes in medications for homegoing were reviewed. The Reason for Use, instructions for use, and potential side effects were reviewed for all new medications. The patient's questions regarding all of their medications were answered. The patient was able to verbally demonstrate an understanding of their discharge medications.
== END 2020-11-30 11:12 | disposition home or self-care (01) | DRG 868 ==
LOC: ED 23:39 → MS3 23:59
PROVIDERS: Admitting Provider Student in an Organized Health Care Education/Training Program; Emergency Provider Emergency Medicine; PCP Family Medicine; Visit Provider Internal Medicine
DX: T80.29XA Infection following other infusion, transfusion and therapeutic injection, initial encounter (principal); L03.113 Cellulitis of right upper limb; T80.1XXA Vascular complications following infusion, transfusion and therapeutic injection, initial encounter; I80.8 Phlebitis and thrombophlebitis of other sites; Y84.8 Other medical procedures as the cause of abnormal reaction of the patient, or of later complication, without mention of misadventure at the time of the procedure; E11.69 Type 2 diabetes mellitus with other specified complication; I25.10 Atherosclerotic heart disease of native coronary artery without angina pectoris; E03.9 Hypothyroidism, unspecified; I12.9 Hypertensive chronic kidney disease with stage 1 through stage 4 chronic kidney disease, or unspecified chronic kidney disease; N18.31 Chronic kidney disease, stage 3a; N40.0 Benign prostatic hyperplasia without lower urinary tract symptoms; Z95.1 Presence of aortocoronary bypass graft; Z95.5 Presence of coronary angioplasty implant and graft; Z79.02 Long term (current) use of antithrombotics/antiplatelets; Z79.84 Long term (current) use of oral hypoglycemic drugs; Z79.890 Hormone replacement therapy; Z79.899 Other long term (current) drug therapy; Z87.891 Personal history of nicotine dependence
CPT/HCPCS: 36415; 80048; 82962; 85025; 87040; 97166; 99284; J7030; J7050; A4216; J0295

== ENCOUNTER 2023-04-15 13:46 | Observation (INO) | payer MEDICARE, OTHER, SELFPAY ==
[2023-04-15] VITALS (7 sets, daily range): BP systolic 103–114; BP diastolic 57–76; PULSE 45–58; RESP 15–16; TEMP 36.4–36.6; O2SAT 95–99; BMI 23.8; BMI 24.1
--- NOTE | 2023-04-15 13:55 | ED.VIS.CHEST ---
HPI History of Present Illness Chief Complaint: Chest Pain Informant: patient Onset/Context/Timing Onset: Today Activity at onset: gradual Timing: Intermittent Quality: Positive for - (Cramping) Location: Substernal and - (And upper back) Worsened By: Exertion Relieved By: Rest Associated Symptoms: Positive for Dyspnea and Lightheadedness; Negative for Nausea, Vomiting, Diaphoresis, Cough, Fever, Acid Reflux or Palpitations Narrative Narrative: Patient presents with pain in his upper chest and upper back that began today. Patient states he was doing some work outside cleaning up after horses when he started getting pain in his upper back. Patient describes it as cramping. Patient states it got better when he stopped and rested. Patient states he checked his blood pressure at home and it was in the 110s over 50. Patient noted that his heart rate was in the 40s at that time. Patient admits to some mild shortness of breath and lightheadedness when he had the pain. Patient denies any recent fevers or chills. [facility] Medical History Coronary artery disease CPAP (continuous positive airway pressure) dependence Former smoker Hearing loss, left Hearing loss, right Hypertension Hypothyroidism Kidney stones Sleep apnea Home Medications Finasteride 5 mg PO QHS BPH 07/20/19 [History Last Taken 11/28/20] Tamsulosin Hcl 0.4 mg PO BID BPH 07/20/19 [History Last Taken 04/14/23] cholecalciferol (vitamin D3) 25 mcg (1,000 unit) tablet 2,000 unit PO DAILY supplement 07/20/19 [History Last Taken 04/15/23] coenzyme Q10 10 mg capsule 10 mg PO DAILY cholesterol 07/20/19 [History Last Taken 04/15/23] fluticasone propionate 50 mcg/actuation nasal spray,suspension 2 spray NASAL DAILY 07/20/19 [History Last Taken 04/14/23] levothyroxine 75 mcg tablet 75 mcg PO DAILY supplement 07/20/19 [History Last Taken 04/15/23] metoprolol tartrate 25 mg tablet 25 mg PO DAILY blood pressure 07/20/19 [History Last Taken 04/15/23] nitroglycerin 0.4 mg sublingual tablet 0.4 mg SL PRN PRN CHEST PAIN 03/08/20 [History Last Taken Unknown] tafamidis 61 mg capsule 80 mg PO DAILY heart 07/20/19 [History Last Taken 04/15/23] clopidogrel 75 mg tablet 75 mg PO DAILY blood thinner 11/28/20 [History Last Taken 04/15/23] docusate sodium 100 mg tablet 100 mg PO DAILY constipation 11/29/20 [History Last Taken 04/15/23] furosemide 20 mg tablet 20 mg PO DAILY 04/15/23 [History Last Taken 04/15/23] ipratropium bromide 42 mcg (0.06 %) nasal spray 2 spray intranasal BID 04/15/23 [History Last Taken 04/15/23] pantoprazole 20 mg tablet,delayed release (Protonix) 20 mg PO DAILY 04/15/23 [History Last Taken 04/15/23] pregabalin 25 mg capsule (Lyrica) 25 mg PO BID 04/15/23 [History Last Taken 04/15/23] rosuvastatin 40 mg tablet (Crestor) 40 mg PO DAILY 04/15/23 [History Last Taken 04/14/23] Allergy/AdvReac Type Severity Reaction Status Date / Time No Known Allergies Allergy Verified 11/28/20 21:22 Surgical History History of cholecystectomy History of coronary artery stent placement Hx of CABG Social History Smoking Status: Former smoker ROS ROS ED Constitutional Constitutional ED: Denies chills or fever(s) Eyes Eyes: Denies blurry vision or change in vision ENT ENT ED: Reports rhinorrhea; Denies sore throat Cardiovascular Cardiovascular: Reports as per HPI and chest pain; Denies palpitations Respiratory/Chest Respiratory/Chest: Reports dyspnea; Denies cough Gastrointestinal Gastrointestinal: Denies nausea or vomiting Genitourinary Genitourinary ED: Denies dysuria or hematuria Musculoskeletal Musculoskeletal: Reports back pain and neck pain Integumentary Denies abscess or rash Neurologic Neurologic: Denies headache(s) or weakness Allergic/Immunologic Allergic/Immunologic ED: Denies mouth swelling or urticaria EXAM Physical Exam Const Vital Signs: 04/15/23 13:47 04/15/23 13:57 04/15/23 13:57 Temperature 97.6 F L Temperature Source Temporal Pulse Rate 57 L 58 L Respiratory Rate 16 16 Blood Pressure 114/60 Blood Pressure Mean 78 Pulse Ox 97 99 Oxygen Delivery Method Room Air Room Air Room Air 04/15/23 15:06 Temperature Temperature Source Pulse Rate 57 L Respiratory Rate 16 Blood Pressure 105/57 L Blood Pressure Mean 73 Pulse Ox 99 Oxygen Delivery Method Room Air Positive well nourished and well developed General Appearance ED: well developed and NAD HEENT Reports moist mucous membranes Neck supple and no JVD Chest Wall inspection of chest normal and palpation of chest normal Resp normal respiratory effort and clear to auscultation bilaterally Cardio regular rate and regular rhythm GI soft to palpation, non-tender and non-distended Neuro oriented x3, CN's II-XII intact bilaterally and no sensory deficits noted Sensorium / Orientation: awake and alert Motor Exam: strength 5/5 throughout Psych mental status grossly normal Heart Score History: Moderately Suspicious ECG: Nonspecific Repolarization Age: >/= 65 years Risk Factors: >/= 3 Risk Factors or History of CAD Troponin: </= Normal Limit Score: 6 MDM MDM MDM Narrative Medical decision making narrative: Differential diagnosis includes cardiac dysrhythmia, cardiac ischemia, electrolyte abnormality, pneumonia, pneumothorax, and musculoskeletal pain. EKG will be obtained to assess for cardiac dysrhythmia and cardiac ischemia. Chest x-ray will be obtained to assess for pneumonia and pneumothorax and widened mediastinum. CBC will be obtained to assess for leukocytosis and anemia. Basic metabolic profile will be obtained to assess for electrolyte abnormality and renal function. High-sensitivity troponin will be obtained to assess for cardiac ischemia. 2-hour repeat high-sensitivity troponin will be obtained to assess for ongoing cardiac ischemia. History & Record Review Additional record(s) reviewed:: Prior labs Lab Data Attestation: I reviewed the patient's lab results. Lab results narrative: CBC was reviewed. There is a mild anemia with a hemoglobin of 12.1 and hematocrit of 38.0. This is consistent with prior results. Basic metabolic profile was reviewed. BUN was 30 and creatinine was 1.54. These are consistent with prior results. Glucose was slightly elevated at 126. Anion gap was normal. High-sensitivity troponin was reviewed and was normal at 53. 2-hour repeat high-sensitivity troponin was reviewed and was normal at 66. Labs: Laboratory Results - last 24 hr 04/15/23 04/15/23 13:55 16:35 WBC 6.2 RBC 3.87 L Hgb 12.1 L Hct 38.0 L MCV 98.2 H MCH 31.3 MCHC 31.8 L RDW Std Deviation 45.1 H RDW Coeff of Dina 12.6 Plt Count 95 L MPV 10.7 Immature Gran % (Auto) 0.200 Neut % (Auto) 59.6 Lymph % (Auto) 26.3 Rankin % (Auto) 10.7 H Eos % (Auto) 2.6 Baso % (Auto) 0.6 Absolute Neuts (auto) 3.7 Absolute Lymphs (auto) 1.62 Nucleated RBC % 0 Differential Comment SCANNED Platelet Estimate MOD DEC Sodium 136 Potassium 3.7 Chloride 102 Carbon Dioxide 32.0 Anion Gap 2 L BUN 30 H Creatinine 1.54 H Estim Creat Clear Calc 30.50 Est GFR (MDRD) Af Amer 55 L Est GFR (MDRD) Non-Af 46 L BUN/Creatinine Ratio 19.5 Glucose 126 H Calcium 8.9 Troponin I High Sens 53 66 Radiography Chest X-Ray - ED: 1 View, Read by ED Physician, Read by Radiologist and No Acute Disease Diagnostic Testing: Clinical Impression(s) from Imaging Studies Chest X-Ray 04/15/23 14:12 IMPRESSION: No acute findings in the chest. Electronically Signed: Javi Navarro MD at 14:57 EST , Portable 1 view chest x-ray was obtained. On my independent interpretation, lung garay are clear. There is normal cardiac silhouette. Bony thorax is normal. There is no acute process noted. Radiologist also interpreted the x-ray and agrees. EKG Initial EKG: Interpretation: Sinus Bradycardia (54 with first-degree AV block), RBBB and Non-Specific ST Changes Comments: EKG was obtained. On my independent interpretation, shows sinus bradycardia with a first-degree AV block with a rate of 54. There are occasional PACs noted. There is a right bundle branch block pattern noted. There is left axis deviation at -72. MS interval was prolonged at 266 ms. QRS interval was prolonged at 152 ms. QTc interval was 464 ms. There are nonspecific ST-T wave changes noted. Prior EKG tracings: not available for review Prior: No Prior Management Discussion w/another healthcare provider: Hospitalist Treatment and Re-Evaluation :: Patient was given aspirin here. Patient was advised of his findings. Patient has a HEART score of 6. Because of this, I recommended admission to the hospital. Case will be discussed with the hospitalist. Will admit the patient to his service. Patient understood and was agreeable with the plan. All questions were answered. Discharge Plan Dx/Rx/DC Orders Clinical Impression: Diabetes, Chest pain, Hypertension Disposition Disposition: Acute Care Hospital [facility]
--- NOTE | 2023-04-15 14:12 | RAD_ITS ---
EXAM: XR CHEST, 1 VIEW CLINICAL INDICATION: chest pain TECHNIQUE: Frontal view of the chest. COMPARISON: No relevant prior studies available. FINDINGS: LUNGS AND PLEURAL SPACES: Unremarkable. No consolidation or edema. No pneumothorax. No effusion. HEART: Unremarkable. Cardiac silhouette not enlarged. MEDIASTINUM: Central airways and mediastinal contour are unremarkable. BONES/JOINTS: Elevated right humeral head with eburnation of the acromion suggest a chronic rotator cuff tear. Multiple median sternotomy wires are noted consistent for cardiac surgery. Degenerative findings in the shoulders. No acute fracture. SOFT TISSUES: Unremarkable. RAD/Chest 1 View (Portable) IMPRESSION: No acute findings in the chest. Electronically Signed: Javi Navarro MD at 14:57 EST Reading Location ID and State: [facility] / [place] , Service support ,
--- NOTE | 2023-04-15 14:12 | EKG12_ITS ---
Test Reason : Blood Pressure : / mmHG Vent. Rate : 054 BPM Atrial Rate : 054 BPM P-R Int : 266 ms QRS Dur : 152 ms QT Int : 490 ms P-R-T Axes : 047 -72 063 degrees QTc Int : 464 ms Sinus bradycardia with 1st degree A-V block with Premature supraventricular complexes Left axis deviation Right bundle branch block Inferior infarct , age undetermined Anteroseptal infarct , age undetermined Abnormal ECG Confirmed by ANIBAL RODRIGUEZ, HERBIE ([id number]), news videotape editor NAYANA FITZGERALD ([id number]) on 04/16/2023 10:59:50 AM Referred By: FINESSE Confirmed By:HERBIE BARNETT MD
[2023-04-15 14:31] LABS: Absolute Lymphocyte Count 1.62 X10^3/uL (0.83-4.51); Absolute Neutrophil Count 3.7 X10^3/uL (2.0-7.7); Basophil# 0.04 X10^3/uL; Basophil% 0.6 % (0-1); Eosinophil# 0.16 X10^3/uL; Eosinophils% 2.6 % (0-5); Hemoglobin 12.1 g/dL (13.0-16.5); Lymphocyte # 1.62 X10^3/ul (0.83-4.51); Lymphocyte % 26.3 % (19-41); Mean Corp Hgb Conc 31.8 g/dL (32-36); Mean Corpuscular Hgb 31.3 pg (27.0-32.0); Mean Corpuscular Volume 98.2 fL (80-94); Mean Platelet Vol. 10.7 fl (6.2-12.0); Monocyte# 0.66 X10^3/uL; Monocyte% 10.7 % (0-10); NRBC Flagged by Analyzer 0 % (0-5); Neutrophil # 3.67 X10^3/uL (2.7-7.7); Neutrophil % 59.6 % (47-70); POSITIVE COUNT YES; Platelet Count 95 K/mm3 (150-450); RBC Distribution Width CV 12.6 % (11.6-14.6); RBC Distribution Width SD 45.1 fl (35.1-43.9); Red Blood Count 3.87 M/mm3 (4.6-6.2); White Blood Count 6.2 K/mm3 (4.4-11.0)
[2023-04-15 14:33] LABS: Differential Indicated SCAN CRITERIA MET
[2023-04-15] MEDS: Aspirin 81 MG TAB.CHEW 324 MG PO (14:38)
[2023-04-15 14:43] LABS: Anion Gap 2 (5-15); BUN 30 mg/dL (7-18); BUN/Creat Ratio 19.5 RATIO (10-20); Calcium,Total 8.9 mg/dL (8.5-10.1); Chloride 102 mmol/L (98-107); Creatinine, Serum 1.54 mg/dL (0.70-1.30); EST Glomerular Filtration Rate 46 mL/min (>60); Est Glom Filt Rate - Afr Amer 55 mL/min (>60); Glucose 126 mg/dL (74-106); Potassium 3.7 mmol/L (3.5-5.1); Sodium Level 136 mmol/L (136-145); Troponin-I HS (w/2H Reflex) 53 pg/mL (3.0-78.0)
[2023-04-15 14:48] LABS: Differential Comment SCANNED; Platelet Estimate MOD DEC (ADEQ)
[2023-04-15 16:22] LABS: Reflex Troponin-HS? (from REC) Y
[2023-04-15 16:59] LABS: Troponin-I HS 66 pg/mL (3.0-78.0)
--- NOTE | 2023-04-15 17:15 | PCM.HP.STD ---
HPI - General General Date of Admission: 04/15/23 Date of Service: 04/15/23 Chief Complaint: Chest pain, ACS rule out HPI Narrative ALEXANDRE NASH, is a 87 M who presented to [facility] ED on 04/15/2023 with chest pain. Patient seen at bedside in the ED. Patient was laying comfortably in bed, conversing normally, no acute distress. Patient appears somewhat younger than stated age and is very active at baseline. 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 Patient states that he was cleaning up after the horses earlier today when he had an episode of chest pain that radiated to his upper back. He sat down and rested, and his symptoms largely resolved. Because of his cardiac history, patient came to the ED for further evaluation. Patient states that chest pain has resolved at this time. He denies any shortness of breath, abdominal pain or discomfort. Denies any lightheadedness or dizziness. No other acute concerns at this time. Patient notably has a significant cardiac history and follows with [facility] cardiology. See assessment and plan below for more details. Importantly, patient had similar symptoms back in November of this year. He had a PET stress test done at the [facility] on 12/26/2022. There was no noted ischemia or scarred myocardium on the stress test, but his ejection fraction was newly reduced at 38% and he had moderate to severe LV dysfunction and moderate RV dysfunction. Unfortunately, unable to find if patient followed up with his multimedia specialist after the stress test was done. He has continued to take all home medications as prescribed. PENDING SALE TO [facility] Medical History (Updated 04/15/23 @ 20:19 by Amy Cisneros) BPH (benign prostatic hyperplasia) Coronary artery disease CPAP (continuous positive airway pressure) dependence Former smoker Hearing loss, left Hearing loss, right Hypertension Hypothyroidism Kidney stones Sleep apnea Home Medications Finasteride 5 mg PO QHS BPH 07/20/19 [History Last Taken 11/28/20] Tamsulosin Hcl 0.4 mg PO BID BPH 07/20/19 [History Last Taken 04/14/23] cholecalciferol (vitamin D3) 25 mcg (1,000 unit) tablet 2,000 unit PO DAILY supplement 07/20/19 [History Last Taken 04/15/23] coenzyme Q10 10 mg capsule 10 mg PO DAILY cholesterol 07/20/19 [History Last Taken 04/15/23] fluticasone propionate 50 mcg/actuation nasal spray,suspension 2 spray NASAL DAILY 07/20/19 [History Last Taken 04/14/23] levothyroxine 75 mcg tablet 75 mcg PO DAILY supplement 07/20/19 [History Last Taken 04/15/23] metoprolol tartrate 25 mg tablet 25 mg PO DAILY blood pressure 07/20/19 [History Last Taken 04/15/23] nitroglycerin 0.4 mg sublingual tablet 0.4 mg SL PRN PRN CHEST PAIN 07/20/19 [History Last Taken Unknown] tafamidis 61 mg capsule 80 mg PO DAILY heart 07/20/19 [History Last Taken 04/15/23] clopidogrel 75 mg tablet 75 mg PO DAILY blood thinner 11/28/20 [History Last Taken 04/15/23] docusate sodium 100 mg tablet 100 mg PO DAILY constipation 11/29/20 [History Last Taken 04/15/23] furosemide 20 mg tablet 20 mg PO DAILY 04/15/23 [History Last Taken 04/15/23] ipratropium bromide 42 mcg (0.06 %) nasal spray 2 spray intranasal BID 04/15/23 [History Last Taken 04/15/23] pantoprazole 20 mg tablet,delayed release (Protonix) 20 mg PO DAILY 04/15/23 [History Last Taken 04/15/23] pregabalin 25 mg capsule (Lyrica) 25 mg PO BID 04/15/23 [History Last Taken 04/15/23] rosuvastatin 40 mg tablet (Crestor) 40 mg PO DAILY 04/15/23 [History Last Taken 04/14/23] Allergy/AdvReac Type Severity Reaction Status Date / Time No Known Allergies Allergy Verified 11/28/20 21:22 Surgical History (Updated 04/15/23 @ 20:19 by Amy Cisneros) History of cholecystectomy History of coronary artery stent placement Hx of CABG S/P TAVR (transcatheter aortic valve replacement) Social History Smoking Status: Former smoker ROS Constitutional Constitutional: Denies change in weight, chills, fatigue, fever(s) or weakness Eyes Eyes: Denies change in vision Cardiovascular Cardiovascular: Denies chest pain, dyspnea on exertion, edema, lightheadedness, palpitations or rapid heart rate Respiratory/Chest Respiratory/Chest: Denies cough, shortness of breath at rest or wheezing Gastrointestinal Gastrointestinal: Denies abdominal pain, constipation, diarrhea, nausea or vomiting Genitourinary Genitourinary: Denies dysuria Musculoskeletal Musculoskeletal: Denies arthralgias or back pain Neurologic Neurologic: Denies dizziness, focal weakness or headache(s) Vital Signs Vital Signs Vital Signs: 04/15/23 13:47 04/15/23 13:57 04/15/23 13:57 Temperature 97.6 F L Temperature Source Temporal Pulse Rate 57 L 58 L Respiratory Rate 16 16 Blood Pressure 114/60 Blood Pressure Mean 78 Pulse Ox 97 99 Oxygen Delivery Method Room Air Room Air Room Air 04/15/23 15:06 Temperature Temperature Source Pulse Rate 57 L Respiratory Rate 16 Blood Pressure 105/57 L Blood Pressure Mean 73 Pulse Ox 99 Oxygen Delivery Method Room Air Weight Weight: 66.95 kg Body Mass Index (BMI) 23.8 Physical Exam Const alert, oriented x3, no apparent distress, average body habitus, healthy appearing and well nourished Constitutional Narrative: Pleasant elderly male, appears somewhat younger than stated age, laying comfortably in bed, conversing normally, no acute distress. General Appearance: cooperative and comfortable HEENT normocephalic, head/scalp atraumatic, hearing grossly normal bilaterally, nasal mucous membranes and turbinates normal and moist oral mucous membranes Eyes PERRL, EOMs intact bilaterally and conjunctivae normal Neck full ROM, no lymphadenopathy and supple Lymph Lymphatic: no lymphadenopathy noted Chest inspection of chest normal Resp normal respiratory effort, normal air movement, no use of accessory muscles and clear to auscultation bilaterally Cardio regular rate, regular rhythm, no murmurs and peripheral pulses 2+ throughout GI normal to inspection, nondistended, normoactive bowel sounds, soft to palpation, non-tender and non-distended Back/Spine normal ROM Extremity normal to inspection, full ROM and no pedal edema Skin no rashes or lesions noted Neuro moves all extremities and no focal motor deficits Speech: speech normal Psych mental status grossly normal Results Lab / Micro Data 04/15/23 13:55 04/15/23 13:55 Labs: Laboratory Results - last 24 hr 04/15/23 13:55: WBC 6.2, RBC 3.87 L, Hgb 12.1 L, Hct 38.0 L, MCV 98.2 H, MCH 31.3, MCHC 31.8 L, RDW Std Deviation 45.1 H, RDW Coeff of Dina 12.6, Plt Count 95 L, MPV 10.7, Immature Gran % (Auto) 0.200, Neut % (Auto) 59.6, Lymph % (Auto) 26.3, Rains % (Auto) 10.7 H, Eos % (Auto) 2.6, Baso % (Auto) 0.6, Absolute Neuts (auto) 3.7, Absolute Lymphs (auto) 1.62, Nucleated RBC % 0, Differential Comment SCANNED, Platelet Estimate MOD DEC, Sodium 136, Potassium 3.7, Chloride 102, Carbon Dioxide 32.0, Anion Gap 2 L, BUN 30 H, Creatinine 1.54 H, Estim Creat Clear Calc 30.50, Est GFR (MDRD) Af Amer 55 L, Est GFR (MDRD) Non-Af 46 L, BUN/Creatinine Ratio 19.5, Glucose 126 H, Calcium 8.9, Troponin I High Sens 53 04/15/23 16:35: Troponin I High Sens 66 Imagaing Radiology Impression Chest X-Ray 04/15/23 14:12 IMPRESSION: No acute findings in the chest. Electronically Signed: Javi Navarro MD at 14:57 EST Reading Location ID and State: [facility] / [place] , Service support , Assessment & Plan Assessment/Plan (1) Chest pain: PLAN: Plan Patient is an 87-year-old male who presented to [facility] ED on 04/15/2023 with chest pain. 1. 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 Pain improved when he stopped and rested. Pain completely resolved by the time patient got to the ED. EKG showed sinus bradycardia with first-degree AV block, RBBB, occasional PACs, nonspecific ST changes noted. Troponin trend 53 to 70. Chest x-ray nonacute. Heart score of 6. Importantly, patient follows with [facility] Cardiology. He reported very similar symptoms in 11/2022. PET stress test on 12/26/2022 showed normal perfusion but abnormal EF of approximately 38%, no evidence of ischemia or scarred myocardium, LV moderately dilated, LV systolic function severely decreased, RV moderately dilated, RV systolic function moderately decreased; noted to be an intermediate risk scan. Unfortunately, I was unable to find if patient had followed up with cardiology in the office after his stress test or if any changes have been made to his medications. ? Admit under observation status to PCU. Cardiology consulted. Repeat echo ordered. Continue home Lopressor 25 mg daily, Lasix 20 mg daily, tafamidis. 2. History of CAD s/p CABG x 3 and stenting, hypertension, hyperlipidemia ? Follows with [facility] cardiology. Stress test in 12/2022 as noted above. Continue Plavix, rosuvastatin, Lopressor. 3. History of aortic valve stenosis s/p TAVR in 2019 ? Repeat echo ordered as above. Chronic medical conditions: ? BPH: Continue home Flomax and finasteride. ? Hypothyroidism: Continue home Synthroid. ? GERD: Continue home PPI. ? Type 2 diabetes: Diet controlled, previous A1c values around 6.5 to 7%. BG 126 on admit. Will hold on sliding scale insulin for now, can start if needed. ? CKD stage III: Creatinine 1.54 on admit, at baseline. Stable. ? Chronic normocytic anemia: Hemoglobin 12.1, MCV 98 on admit, at baseline. Stable. DVT prophylaxis: Lovenox CODE STATUS: Full code, verified Expected disposition: Home, 1 to 2 days Total clinical time spent by myself addressing the patient's medical issues, reviewing all the data, and collaborating with patient's care team: 55 minutes. Charges/Coding Visit Charges Inpatient E&M: 70988 Init Hosp L2
--- NOTE | 2023-04-15 18:40 | ECHOD_ITS ---
Reason For Study: CHEST PAIN Procedure This was a 2D Doppler, Color Flow transthoracic echocardiogram. Exam performed portable in patient room. Left Ventricle Normal LV size. Severe concentric left ventricular hypertrophy. Left ventricular systolic function is normal. The estimated ejection fraction is 65 %. Stage 3 diastolic dysfunction. No regional wall motion abnormalities noted. Right Ventricle Normal RV size. Normal systolic function. Atria The left atrium is mildly enlarged. Normal right atrium. Mitral Valve Normal mitral valve. Mild-Moderate (1-2+) eccentric mitral valve insufficiency. Tricuspid Valve Normal tricuspid valve. Aortic Valve Peak aortic valve gradient 19 mmHg. Mean aortic valve gradient 11 mmHg. Mild aortic stenosis. Bioprosthetic aortic valve. Pulmonic Valve Normal pulmonic valve. Great Vessels Normal aortic root. The pulmonary artery is normal size. Normal inferior vena cava. Pericardium/Pleural No pericardial effusion. MMode/2D Measurements & Calculations LVIDd: 4.6 cm IVSd: 1.6 cm LVOT diam: 1.9 cm LVIDs: 3.4 cm LVPWd: 1.5 cm LVOT area: 2.7 cm2 RVDd: 4.5 cm FS: 24.6 % LAV(MOD-bp): 99.6 ml LVAd ap4: 34.7 cm2 SV(MOD-sp4): 67.0 ml LAV(MOD-bp) Indexed: 56.8 ml/m2 LVLd ap4: 8.8 cm LAV(MOD-sp2): 119.5 ml EDV(MOD-sp4): 111.5 ml LAV(MOD-sp4): 77.0 ml EDV(sp4-el): 116.7 ml LVAs ap4: 19.3 cm2 LVLs ap4: 7.2 cm ESV(MOD-sp4): 44.5 ml ESV(sp4-el): 43.8 ml EF(MOD-sp4): 60.1 % EF(sp4-el): 62.4 % SV(sp4-el): 72.8 ml LA A4 area: 23.1 cm2 LA dimension(2D): 5.1 cm RA A4 area: 17.6 cm2 TAPSE: 1.1 cm Time Measurements MV dec time: 0.21 sec Doppler Measurements & Calculations MV E max damon: 102.9 cm/sec Lat Peak E' Damon: 5.4 cm/sec Med Peak E' Damon: 4.0 cm/sec MV A max damon: 45.5 cm/sec E/E' lat: 19.0 E/E' med: 25.5 MV E/A: 2.3 MV V2 max: 115.3 cm/sec Ao V2 max: 217.7 cm/sec MV max P.3 mmHg MV dec slope: 492.5 cm/sec2 Ao max P.2 mmHg MV V2 mean: 64.4 cm/sec Ao V2 mean: 158.8 cm/sec MV mean P.9 mmHg Ao mean P.4 mmHg MV V2 VTI: 38.9 cm Ao V2 VTI: 49.4 cm AV (velocity ratio): 0.50 MVA(VTI): 1.7 cm2 PARAM(I,D): 1.4 cm2 PARAM(V,D): 1.5 cm2 LV V1 max: 118.2 cm/sec MR max damon: 505.3 cm/sec SV(LVOT): 67.1 ml LV V1 max P.6 mmHg MR max P.1 mmHg LV V1 mean P.5 mmHg LV V1 mean: 88.8 cm/sec LV V1 VTI: 24.6 cm ECHO/Echo Complete Interpretation Summary Normal LV size. Severe concentric left ventricular hypertrophy. Left ventricular systolic function is normal. The estimated ejection fraction is 65 %. Stage 3 diastolic dysfunction. Mean aortic valve gradient 11 mmHg. Mild aortic stenosis. Bioprosthetic aortic valve. Ordering Physician: Chuck Ferrara Referring Physician: PUMA FRANCIS Performed By: Teresa Reeves RCS
[2023-04-15 19:17] LABS: Troponin-I HS 70 pg/mL (3.0-78.0)
[2023-04-15] MEDS: Pregabalin 25 MG Capsule PO (21:53)
[2023-04-15] MEDS: Finasteride 5 MG Tablet PO (21:53)
[2023-04-15] MEDS: Atorvastatin Calcium 80 MG Tablet PO (21:53)
[2023-04-15] MEDS: Tamsulosin HCl 0.4 MG Capsule PO (22:04)
[2023-04-16 03:00] VITALS: BP 115/66; PULSE 61; RESP 16; TEMP 36.6; O2SAT 97
[2023-04-16] MEDS: Levothyroxine 75 MCG Tablet PO (06:29)
[2023-04-16 06:44] LABS: Hemoglobin 11.8 g/dL (13.0-16.5); Mean Corp Hgb Conc 31.9 g/dL (32-36); Mean Corpuscular Hgb 31.2 pg (27.0-32.0); Mean Corpuscular Volume 97.9 fL (80-94); Mean Platelet Vol. 10.7 fl (6.2-12.0); POSITIVE COUNT YES; Platelet Count 94 K/mm3 (150-450); RBC Distribution Width CV 12.4 % (11.6-14.6); RBC Distribution Width SD 44.4 fl (35.1-43.9); Red Blood Count 3.78 M/mm3 (4.6-6.2); White Blood Count 4.6 K/mm3 (4.4-11.0)
--- NOTE | 2023-04-16 06:51 | CON.PCM.CA_ITS ---
Assessment & Plan Assessment/Plan (1) Chest pain: PLAN: He presents with chest discomfort which appears to be atypical at this time. Cardiac enzymes are normal and EKG is with no acute changes. He recently had a stress test within the last 3 to 4 months and I do not think there is a reason to repeat this. * Will suggest obtaining an echocardiogram to assess his ventricular function. If this is not significantly changed from before then I will suggest that he can be discharged for outpatient follow-up. We will go over his medications and optimize these. (2) Hypertension: PLAN: His blood pressure appears to be under excellent control at this particular time I would not recommend that we make any changes. 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 He is scheduled to undergo a clinical trial at the [facility]. We will defer to them for this. (4) S/P TAVR (transcatheter aortic valve replacement): PLAN: He does have a history of TAVR. This will be reevaluated with the echocardiogram today. Clinically it appears to be stable. (5) History of coronary artery stent placement: PLAN: He is status post previous PCI and stenting. His recent stress test is reassuring. This would not be repeated. (6) Hx of CABG: PLAN: He does have a history of coronary bypass surgery. With his recent stress test I would not recommend repeating this. His medications have been reviewed and appear to be optimized. Thank you for allowing me to participate in the care of your patient. Please don't hesitate to call if any issues arise. HPI Consult Data Date of Consult: 04/16/23 HPI Narrative HPI Narrative: ALEXANDRE NASH, is a 87 M who presents to the emergency room with complaints of back discomfort. He also thinks he may have had a little bit of chest discomfort. 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 He also has had a TAVR in the past. He says that he had a stress test done at the [facility] in December 2022 and there was no evidence of ischemia or scarred myocardium but his ejection fraction was reduced to 38% and he had moderate to severe left ventricular dysfunction and right ventricular systolic dysfunction. He is scheduled to follow-up at the [facility]. It appears that he is on tafamidis and tells me that he is going to be enrolled in a clinical trial. He has been actually quite active [place] and he had an episode of chest discomfort radiating to his back today. He presented to the emergency room by that time his chest discomfort had resolved. His EKG demonstrated sinus rhythm with a rate of 54 bpm right bundle branch block and a previous inferior infarct was noted. Cardia c enzymes were essentially negative. Cardiology was called to see him due to his complex cardiac history apparently. [facility] Medical History (Updated 04/16/23 @ 06:[address] Declan Arvizu MD) BPH (benign prostatic hyperplasia) Coronary artery disease CPAP (continuous positive airway pressure) dependence Former smoker Hearing loss, left Hearing loss, right Hypertension Hypothyroidism Kidney stones Sleep apnea Home Medications Finasteride 5 mg PO QHS BPH 07/20/19 [History Last Taken 11/28/20] Tamsulosin Hcl 0.4 mg PO BID BPH 07/20/19 [History Last Taken 04/14/23] cholecalciferol (vitamin D3) 25 mcg (1,000 unit) tablet 2,000 unit PO DAILY supplement 07/20/19 [History Last Taken 04/15/23] coenzyme Q10 10 mg capsule 10 mg PO DAILY cholesterol 07/20/19 [History Last Taken 04/15/23] fluticasone propionate 50 mcg/actuation nasal spray,suspension 2 spray NASAL DAILY 07/20/19 [History Last Taken 04/14/23] levothyroxine 75 mcg tablet 75 mcg PO DAILY supplement 07/20/19 [History Last Taken 04/15/23] metoprolol tartrate 25 mg tablet 25 mg PO DAILY blood pressure 07/20/19 [History Last Taken 04/15/23] nitroglycerin 0.4 mg sublingual tablet 0.4 mg SL PRN PRN CHEST PAIN 07/20/19 [History Last Taken Unknown] tafamidis 61 mg capsule 80 mg PO DAILY heart 07/20/19 [History Last Taken 04/15/23] clopidogrel 75 mg tablet 75 mg PO DAILY blood thinner 11/28/20 [History Last Taken 04/15/23] docusate sodium 100 mg tablet 100 mg PO DAILY constipation 11/29/20 [History Last Taken 04/15/23] furosemide 20 mg tablet 20 mg PO DAILY 04/15/23 [History Last Taken 04/15/23] ipratropium bromide 42 mcg (0.06 %) nasal spray 2 spray intranasal BID 04/15/23 [History Last Taken 04/15/23] pantoprazole 20 mg tablet,delayed release (Protonix) 20 mg PO DAILY 04/15/23 [History Last Taken 04/15/23] pregabalin 25 mg capsule (Lyrica) 25 mg PO BID 04/15/23 [History Last Taken 04/15/23] rosuvastatin 40 mg tablet (Crestor) 40 mg PO DAILY 04/15/23 [History Last Taken 04/14/23] Allergy/AdvReac Type Severity Reaction Status Date / Time No Known Allergies Allergy Verified 11/28/20 21:22 Surgical History (Updated 04/16/23 @ 06:[address] Declan Arvizu MD) History of cholecystectomy History of coronary artery stent placement Hx of CABG S/P TAVR (transcatheter aortic valve replacement) Social History Smoking Status: Former smoker ROS Constitutional Constitutional: Denies fever(s) or weight loss Eyes Eyes: Reports systems reviewed and no addt'l complaints, except as documented ENT HEENT: Reports systems reviewed and no addt'l complaints, except as documented Cardiovascular Cardiovascular: Denies chest pain at rest, chest pain with activity, dyspnea at rest, dyspnea on exertion, edema, palpitations or paroxysmal nocturnal dyspnea Respiratory/Chest Respiratory/Chest: Denies dyspnea on exertion, productive cough, shortness of breath at rest or shortness of breath with exertion Gastrointestinal Gastrointestinal: Denies change in bowel habits, nausea, vomiting or weight changes Genitourinary Genitourinary: Denies difficulty urinating Musculoskeletal Musculoskeletal: Denies joint stiffness or muscle weakness Integumentary Integumentary: Denies lesions Neurologic Neurologic: Denies dizziness or syncope Psychiatric Psychiatric: Denies anxiety Endocrine Endocrinology: Denies excessive sweating or fatigue Hematologic/Lymphatic Hematologic/Lymphatic: Denies anemia Allergic/Immunologic Allergic/Immunologic: Denies seasonal rhinorrhea Physical Exam Const alert, oriented x3 and no apparent distress General Appearance: cooperative HEENT hearing grossly normal bilaterally Head and Scalp: atraumatic Eyes EOMs intact bilaterally Neck General: normal visual inspection Chest inspection of chest normal and palpation of chest normal Resp normal respiratory effort Auscultation: clear to auscultation bilaterally Cardio regular rate, regular rhythm, S1 normal heart sound and S2 normal heart sound Jugular Venous Distention: JVD GI normal to inspection, nondistended, normoactive bowel sounds Extremity normal capillary refill and no pedal edema Peripheral Pulses: Yes pulses 2+ throughout and femoral pulses present Skin no rashes or lesions noted Neuro oriented x3 and CN's II-XII intact bilaterally Psych Appearance: grossly normal and appropriate Risk Stratification Risk Stratification Applicable: Yes Age >/= 65: Yes >/= 3 CAD Risk Factors (HTN, HLD, DM, family hx of CAD, or current smoker): Yes Aspirin Use in the Past 7 Days: Yes Severe Angina (>/= episodes in 24 hours): No EKG ST Changes >/= 0.5mm: No Positive Cardiac Marker: No SAM Risk Stratification Score: 3 SAM % Risk: 13% Risk Objective Data Vital Signs: Vital Signs Temp Pulse Resp BP Pulse Ox O2 Del Method 97.9 F 61 16 115/66 97 Room Air 04/16/23 03:00 04/16/23 03:00 04/16/23 03:00 04/16/23 03:00 04/16/23 03:00 04/16/23 04:00 Oxygen Delivery Method Room Air Weight: 149 lb 12.8 oz Body Mass Index (BMI) 24.1 Lab / Micro Data 04/15/23 13:55 04/15/23 13:55 Labs: Laboratory Results - last 24 hr 04/15/23 13:55: WBC 6.2, RBC 3.87 L, Hgb 12.1 L, Hct 38.0 L, MCV 98.2 H, MCH 31.3, MCHC 31.8 L, RDW Std Deviation 45.1 H, RDW Coeff of Dina 12.6, Plt Count 95 L, MPV 10.7, Immature Gran % (Auto) 0.200, Neut % (Auto) 59.6, Lymph % (Auto) 26.3, Canadian % (Auto) 10.7 H, Eos % (Auto) 2.6, Baso % (Auto) 0.6, Absolute Neuts (auto) 3.7, Absolute Lymphs (auto) 1.62, Nucleated RBC % 0, Differential Comment SCANNED, Platelet Estimate MOD DEC, Sodium 136, Potassium 3.7, Chloride 102, Carbon Dioxide 32.0, Anion Gap 2 L, BUN 30 H, Creatinine 1.54 H, Estim Creat Clear Calc 30.50, Est GFR (MDRD) Af Amer 55 L, Est GFR (MDRD) Non-Af 46 L, BUN/Creatinine Ratio 19.5, Glucose 126 H, Calcium 8.9, Troponin I High Sens 53 04/15/23 16:35: Troponin I High Sens 66 04/15/23 18:53: Troponin I High Sens 70 Cardiology Labs/Tests 04/15/23 13:55: WBC 6.2, RBC 3.87 L, Hgb 12.1 L, Hct 38.0 L, MCV 98.2 H, MCH 31.3, MCHC 31.8 L, Plt Count 95 L, MPV 10.7, Immature Gran % (Auto) 0.200, Neut % (Auto) 59.6, Lymph % (Auto) 26.3, Canadian % (Auto) 10.7 H, Eos % (Auto) 2.6, Baso % (Auto) 0.6, Absolute Neuts (auto) 3.7, Nucleated RBC % 0, Sodium 136, Potassium 3.7, Chloride 102, Carbon Dioxide 32.0, Anion Gap 2 L, BUN 30 H, Creatinine 1.54 H, Est GFR (MDRD) Af Amer 55 L, Est GFR (MDRD) Non-Af 46 L, BUN/Creatinine Ratio 19.5, Glucose 126 H, Calcium 8.9 Rhythm: EKG: ECHO: Stress Test: Cardiac Cath: PCI: CT Surgery: Holter monitor: EPS: PPM: CXR: Chest CT Scan: Radiography Diagnostic Testing: Radiology Impression Chest X-Ray 04/15/23 14:12 IMPRESSION: No acute findings in the chest. Electronically Signed: Javi Navarro MD at 14:57 EST ,
[2023-04-16 07:20] LABS: Anion Gap 5 (5-15); BUN 30 mg/dL (7-18); BUN/Creat Ratio 21.9 RATIO (10-20); Calcium,Total 8.9 mg/dL (8.5-10.1); Chloride 107 mmol/L (98-107); Creatinine, Serum 1.37 mg/dL (0.70-1.30); EST Glomerular Filtration Rate 52 mL/min (>60); Est Glom Filt Rate - Afr Amer 63 mL/min (>60); Estimated Creatinine Clearance 34.28 ml/min; Glucose 97 mg/dL (74-106); Sodium Level 139 mmol/L (136-145)
[2023-04-16 07:42] VITALS: O2SAT 94
[2023-04-16 08:00] VITALS: BP 130/68; PULSE 63; RESP 16; TEMP 36.5; O2SAT 94
[2023-04-16] MEDS: Docusate Sodium 100 MG Capsule PO (08:09)
[2023-04-16] MEDS: Furosemide 20 MG Tablet PO (08:09)
[2023-04-16] MEDS: Fluticasone 0.05% 1 SPRAY NASAL.SRY 2 SPRAY NASAL (08:09)
[2023-04-16 08:10] VITALS: BP 130/68; PULSE 63
[2023-04-16] MEDS: Enoxaparin 40 MG/0.4 ML Syringe SC (08:10)
[2023-04-16] MEDS: Metoprolol Tartrate 25 MG Tablet PO (08:10)
[2023-04-16] MEDS: Pantoprazole Sodium 20 MG Tablet PO (08:11)
[2023-04-16] MEDS: Cholecalciferol (VIT D3) 25 MCG TABLET (1,000 UNITS) 50 MCG PO (08:11)
[2023-04-16] MEDS: Clopidogrel Bisulfate 75 MG Tablet PO (08:11)
--- NOTE | 2023-04-16 08:12 | PCM.PN.HOSP ---
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) Essential (primary) hypertension (04/15/23) Cardiomyopathy in diseases classified elsewhere (04/15/23) Chest pain, unspecified (04/15/23) Presence of aortocoronary bypass graft (04/15/23) Presence of prosthetic heart valve (04/15/23) Presence of coronary angioplasty implant and graft (04/15/23) Objective Data Objective Data Vital Signs: Vital Signs Temp Pulse Resp BP Pulse Ox O2 Del Method 97.7 F L 63 16 130/68 H 94 Room Air 04/16/23 08:00 04/16/23 08:00 04/16/23 08:00 04/16/23 08:00 04/16/23 08:00 04/16/23 08:00 Oxygen Delivery Method Room Air Weight: 67.948 kg Body Mass Index (BMI) 24.1 Lab / Micro Data 04/16/23 06:14 04/16/23 06:14 Labs: Laboratory Results - last 24 hr 04/15/23 13:55: WBC 6.2, RBC 3.87 L, Hgb 12.1 L, Hct 38.0 L, MCV 98.2 H, MCH 31.3, MCHC 31.8 L, RDW Std Deviation 45.1 H, RDW Coeff of Dina 12.6, Plt Count 95 L, MPV 10.7, Immature Gran % (Auto) 0.200, Neut % (Auto) 59.6, Lymph % (Auto) 26.3, Alexander % (Auto) 10.7 H, Eos % (Auto) 2.6, Baso % (Auto) 0.6, Absolute Neuts (auto) 3.7, Absolute Lymphs (auto) 1.62, Nucleated RBC % 0, Differential Comment SCANNED, Platelet Estimate MOD DEC, Sodium 136, Potassium 3.7, Chloride 102, Carbon Dioxide 32.0, Anion Gap 2 L, BUN 30 H, Creatinine 1.54 H, Estim Creat Clear Calc 30.50, Est GFR (MDRD) Af Amer 55 L, Est GFR (MDRD) Non-Af 46 L, BUN/Creatinine Ratio 19.5, Glucose 126 H, Calcium 8.9, Troponin I High Sens 53 04/15/23 16:35: Troponin I High Sens 66 04/15/23 18:53: Troponin I High Sens 70 04/16/23 06:14: WBC 4.6, RBC 3.78 L, Hgb 11.8 L, Hct 37.0 L, MCV 97.9 H, MCH 31.2, MCHC 31.9 L, RDW Std Deviation 44.4 H, RDW Coeff of Dina 12.4, Plt Count 94 L, MPV 10.7, Sodium 139, Potassium 4.0, Chloride 107, Carbon Dioxide 27.0, Anion Gap 5, BUN 30 H, Creatinine 1.37 H, Estim Creat Clear Calc 34.28, Est GFR (MDRD) Af Amer 63, Est GFR (MDRD) Non-Af 52 L, BUN/Creatinine Ratio 21.9 H, Glucose 97, Calcium 8.9 Radiography Diagnostic Testing: Radiology Impression Chest X-Ray 04/15/23 14:12 IMPRESSION: No acute findings in the chest. Electronically Signed: Javi Navarro MD at 14:57 EST Reading Location ID and State: [facility] / [place] , Service support , Physical Exam Narrative GENERAL: cooperative HEENT: Atraumatic; normocephalic EYES; Anicteric, Normal Conjunctiva NECK; supple, normal thyroid, RESPIRATORY: Diminished to auscultation CARDIOVASCULAR: Regular S1 S2, GI: soft, normoactive bowel sounds, : No Renal angle tenderness; EXTREMITIES: No edema, no clubbing, MUSCULOSKELETAL: no muscle wasting NEURO: Awake; no lateralizing signs. SKIN: No Rash PSYCH; Flat affect Assessment & Plan Assessment/Plan (1) Chest pain: PLAN: Plan Patient is an 87-year-old male who presented to [facility] ED on 04/15/2023 with chest pain. 1. 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 Pain improved when he stopped and rested. Pain completely resolved by the time patient got to the ED. EKG showed sinus bradycardia with first-degree AV block, RBBB, occasional PACs, nonspecific ST changes noted. Troponin trend 53 to 70. Chest x-ray nonacute. Heart score of 6. Importantly, patient follows with [facility]iology. He reported very similar symptoms in 11/2022. PET stress test on 12/26/2022 showed normal perfusion but abnormal EF of approximately 38%, no evidence of ischemia or scarred myocardium, LV moderately dilated, LV systolic function severely decreased, RV moderately dilated, RV systolic function moderately decreased; noted to be an intermediate risk scan. Unfortunately, I was unable to find if patient had followed up with cardiology in the office after his stress test or if any changes have been made to his medications. ? Admit under observation status to PCU. Cardiology consulted. Repeat echo ordered. Continue home Lopressor 25 mg daily, Lasix 20 mg daily, tafamidis. 2. History of CAD s/p CABG x 3 and stenting, hypertension, hyperlipidemia ? Follows with [facility] cardiology. Stress test in 12/2022 as noted above. Continue Plavix, rosuvastatin, Lopressor. 3. History of aortic valve stenosis s/p TAVR in 2019 ? Repeat echo ordered as above. Chronic medical conditions: ? BPH: Continue home Flomax and finasteride. ? Hypothyroidism: Continue home Synthroid. ? GERD: Continue home PPI. ? Type 2 diabetes: Diet controlled, previous A1c values around 6.5 to 7%. BG 126 on admit. Will hold on sliding scale insulin for now, can start if needed. ? CKD stage III: Creatinine 1.54 on admit, at baseline. Stable. ? Chronic normocytic anemia: Hemoglobin 12.1, MCV 98 on admit, at baseline. Stable. DVT prophylaxis: Lovenox CODE STATUS: Full code, verified Expected disposition: Home, 1 to 2 days Total clinical time spent by myself addressing the patient's medical issues, reviewing all the data, and collaborating with patient's care team: 55 minutes.
[2023-04-16] MEDS: Pregabalin 25 MG Capsule PO (12:31)
--- NOTE | 2023-04-16 13:01 | CASEMGMT ---
Patient has a Healthcare Power of Home Companion and a Healthcare Living Will. Patient is aware the documents are not on file at [facility]. Patient was made aware to have copies brought in for [facility]. Patient's Healthcare Power of Home Companion is his significant other Jeannie Jackson. Jing THAKUR
--- NOTE | 2023-04-16 13:15 | PCM.DC.SUM ---
Providers Date of Admission: 04/15/23 Date of Discharge: 04/16/23 Primary Care Physician: Dr. Adriano Bailey MD Consultations 04/15/23 23:54 Consult: Cardiology Routine Consulting Provider: Declan Arvizu Reason for Consult: ACS rule out, complex cardiac hx EMERGENT Consult: No MD Notified: Yes Date Notified: 04/16/23 Time Notified: 06:33 Method of Notification: Verbal Reason For Visit: CHEST PAIN, ACS RULE OUT Diagnosis Discharge Diagnosis (1) Chest pain: Status: Acute Code(s): R07.9 - Chest pain, unspecified Medications at Discharge Home Medications Finasteride 5 mg PO QHS BPH 07/20/19 Tamsulosin Hcl 0.4 mg PO BID BPH 07/20/19 cholecalciferol (vitamin D3) 25 mcg (1,000 unit) tablet 2,000 unit PO DAILY supplement 07/20/19 coenzyme Q10 10 mg capsule 10 mg PO DAILY cholesterol 07/20/19 fluticasone propionate 50 mcg/actuation nasal spray,suspension 2 spray NASAL DAILY 07/20/19 levothyroxine 75 mcg tablet 75 mcg PO DAILY supplement 07/20/19 metoprolol tartrate 25 mg tablet 25 mg PO DAILY blood pressure 07/20/19 nitroglycerin 0.4 mg sublingual tablet 0.4 mg SL PRN PRN CHEST PAIN 07/20/19 tafamidis 61 mg capsule 80 mg PO DAILY heart 07/20/19 clopidogrel 75 mg tablet 75 mg PO DAILY blood thinner 11/28/20 docusate sodium 100 mg tablet 100 mg PO DAILY constipation 11/29/20 furosemide 20 mg tablet 20 mg PO DAILY 04/15/23 ipratropium bromide 42 mcg (0.06 %) nasal spray 2 spray intranasal BID 04/15/23 pantoprazole 20 mg tablet,delayed release (Protonix) 20 mg PO DAILY 04/15/23 pregabalin 25 mg capsule (Lyrica) 25 mg PO BID 04/15/23 rosuvastatin 40 mg tablet (Crestor) 40 mg PO DAILY 04/15/23 Hospital Course Summary of Care Provided Minutes Spent on Discharge: 35 Hospital Course: Patient is an 87-year-old male who presented to [facility] ED on 04/15/2023 with chest pain. Chest pain ? Patient nonoperatively undergone stress test on 12/26/2022 which showed normal perfusion. Repeat echo ordered Case discussed with cardiology patient subsequently discharged home 2. Chronic congestive heart failure with reduced ejection fraction ? Patient is on guideline directed medical therapy 3. History of cardiac amyloidosis ? Patient currently participating in a trial at [facility] 4. Coronary artery disease ? With previous CABG and subsequent stenting 5. Hypertension - Blood pressure controlled, home medications continued with dose adjustment as needed 6. Valvular heart disease ? With previous history of TAVR 7. Hypothyroidism - Patient is on levothyroxine home dose continued 8. Diabetes mellitus type II -patient's oral hypoglycemics held. Placed on long acting insulin, Accu-Cheks a.c. and at bedtime and covered with sliding scale insulin 9. BPH ? Patient is on tamsulosin as well as finasteride continue 10. Chronic kidney disease stage III ? Kidney function at baseline 11. Anemia - Secondary to chronic disorder monitoring H&H and transfuse if patient becomes symptomatic or hemoglobin falls below 7 12. DVT prophylaxis - On enoxaparin Physical Exam Narrative GENERAL: cooperative HEENT: Atraumatic; normocephalic EYES; Anicteric, Normal Conjunctiva NECK; supple, normal thyroid, RESPIRATORY: Diminished to auscultation CARDIOVASCULAR: Regular S1 S2, GI: soft, normoactive bowel sounds, : No Renal angle tenderness; EXTREMITIES: No edema, no clubbing, MUSCULOSKELETAL: no muscle wasting NEURO: Awake; no lateralizing signs. SKIN: No Rash PSYCH; Flat affect Weight / BMI Weight Weight: 67.948 kg Body Mass Index (BMI) 24.1 ABG / Lab / Microbiology Data 04/16/23 06:14 04/16/23 06:14 Laboratory: Laboratory Results - last 24 hr 04/15/23 13:55: WBC 6.2, RBC 3.87 L, Hgb 12.1 L, Hct 38.0 L, MCV 98.2 H, MCH 31.3, MCHC 31.8 L, RDW Std Deviation 45.1 H, RDW Coeff of Dina 12.6, Plt Count 95 L, MPV 10.7, Immature Gran % (Auto) 0.200, Neut % (Auto) 59.6, Lymph % (Auto) 26.3, Kingfisher % (Auto) 10.7 H, Eos % (Auto) 2.6, Baso % (Auto) 0.6, Absolute Neuts (auto) 3.7, Absolute Lymphs (auto) 1.62, Nucleated RBC % 0, Differential Comment SCANNED, Platelet Estimate MOD DEC, Sodium 136, Potassium 3.7, Chloride 102, Carbon Dioxide 32.0, Anion Gap 2 L, BUN 30 H, Creatinine 1.54 H, Estim Creat Clear Calc 30.50, Est GFR (MDRD) Af Amer 55 L, Est GFR (MDRD) Non-Af 46 L, BUN/Creatinine Ratio 19.5, Glucose 126 H, Calcium 8.9, Troponin I High Sens 53 04/15/23 16:35: Troponin I High Sens 66 04/15/23 18:53: Troponin I High Sens 70 04/16/23 06:14: WBC 4.6, RBC 3.78 L, Hgb 11.8 L, Hct 37.0 L, MCV 97.9 H, MCH 31.2, MCHC 31.9 L, RDW Std Deviation 44.4 H, RDW Coeff of Dina 12.4, Plt Count 94 L, MPV 10.7, Sodium 139, Potassium 4.0, Chloride 107, Carbon Dioxide 27.0, Anion Gap 5, BUN 30 H, Creatinine 1.37 H, Estim Creat Clear Calc 34.28, Est GFR (MDRD) Af Amer 63, Est GFR (MDRD) Non-Af 52 L, BUN/Creatinine Ratio 21.9 H, Glucose 97, Calcium 8.9 Radiography Diagnostic Testing: Radiology Impression Chest X-Ray 04/15/23 14:12 IMPRESSION: No acute findings in the chest. Electronically Signed: Javi Navarro MD at 14:57 EST Reading Location ID and State: [facility] [place] / [place] , Service support , D/C Instructions Discharge Diet: Low fat / Low cholesterol Discharge Activity: Return to Normal Activity Call your doctor if you observe: Fever of 101 or Higher, Shortness of breath, Fainting spells and Chest pain Meaningful Use Info Meaningful Use Diagnoses (Choose all that apply): None applicable Discharge Plan Admission Admit Date/Time: 04/15/23 17:43 Attending Provider: Michael Shine Primary Care Provider: Adriano Bailey Consulting Providers: Yolanda Arvizu Alexander Discharge Orders/Prescriptions Prescriptions: Continued coenzyme Q10 10 MG capsule 10 mg PO DAILY levothyroxine 75 MCG tablet 75 mcg PO DAILY nitroglycerin 0.4 MG tablet, sublingual 0.4 mg SL PRN PRN (Reason: CHEST PAIN) fluticasone propionate 1 SPRAY spray,suspension 2 spray NASAL DAILY metoprolol tartrate 25 MG tablet 25 mg PO DAILY cholecalciferol (vitamin D3) 1,000 UNIT tablet 2,000 unit PO DAILY tafamidis 61 MG capsule 80 mg PO DAILY Finasteride 5 MG tablet 5 mg PO QHS Tamsulosin Hcl 0.4 MG capsule 0.4 mg PO BID clopidogrel 75 mg Tablet 75 mg PO DAILY docusate sodium 100 mg Tablet 100 mg PO DAILY pregabalin [Lyrica] 25 mg capsule 25 mg PO BID ipratropium bromide 42 mcg (0.06 %) spray,non-aerosol 2 spray INTRANASAL BID rosuvastatin [Crestor] 40 mg tablet 40 mg PO DAILY furosemide 20 mg tablet 20 mg PO DAILY pantoprazole [Protonix] 20 mg tablet,delayed release (DR/EC) 20 mg PO DAILY Referrals / Follow Up: Adriano Bailey MD [Primary Care Provider] - Disposition Disposition (needs filled in before D/C Order can be placed): Home, Self Care Charges/Coding Visit Charges Inpatient E&M: 23898 Disch Hosp >30min
--- NOTE | 2023-04-16 13:30 | PHA.DC.MR.R ---
Pharmacy [place] Med Reconciliation Pharmacy Service has performed discharge medication reconciliation for this patient. The patient's discharge medication list was reviewed for discrepancies and discrepancies were resolved. Medications at Discharge Home Medications Finasteride 5 mg PO QHS BPH 07/20/19 Tamsulosin Hcl 0.4 mg PO BID BPH 07/20/19 cholecalciferol (vitamin D3) 25 mcg (1,000 unit) tablet 2,000 unit PO DAILY supplement 07/20/19 coenzyme Q10 10 mg capsule 10 mg PO DAILY cholesterol 07/20/19 fluticasone propionate 50 mcg/actuation nasal spray,suspension 2 spray NASAL DAILY 07/20/19 levothyroxine 75 mcg tablet 75 mcg PO DAILY supplement 07/20/19 metoprolol tartrate 25 mg tablet 25 mg PO DAILY blood pressure 07/20/19 nitroglycerin 0.4 mg sublingual tablet 0.4 mg SL PRN PRN CHEST PAIN 07/20/19 tafamidis 61 mg capsule 80 mg PO DAILY heart 07/20/19 clopidogrel 75 mg tablet 75 mg PO DAILY blood thinner 11/28/20 docusate sodium 100 mg tablet 100 mg PO DAILY constipation 11/29/20 furosemide 20 mg tablet 20 mg PO DAILY 04/15/23 ipratropium bromide 42 mcg (0.06 %) nasal spray 2 spray intranasal BID 04/15/23 pantoprazole 20 mg tablet,delayed release (Protonix) 20 mg PO DAILY 04/15/23 pregabalin 25 mg capsule (Lyrica) 25 mg PO BID 04/15/23 rosuvastatin 40 mg tablet (Crestor) 40 mg PO DAILY 04/15/23
--- NOTE | 2023-04-16 14:20 | CASEMGMT ---
Patient had order for discharge. RN CM in to discuss discharge needs with patient. Patient denies needs at discharge. Patient independent in room. Patient had no further questions or concerns at this time.
[2023-04-16 14:58] VITALS: BP 138/76; PULSE 62; RESP 16; TEMP 36.5; O2SAT 96
== END 2023-04-16 15:36 | disposition home or self-care (01) ==
LOC: ED 15:32 → PCU 18:05
PROVIDERS: Admitting Provider Hospitalist; Emergency Provider Emergency Medicine; PCP Family Medicine; Visit Provider Internal Medicine
DX: R07.89 Other chest pain (principal); I13.0 Hypertensive heart and chronic kidney disease with heart failure and stage 1 through stage 4 chronic kidney disease, or unspecified chronic kidney disease; I50.22 Chronic systolic (congestive) heart failure; E11.22 Type 2 diabetes mellitus with diabetic chronic kidney disease; E85.9 Amyloidosis, unspecified; N18.30 Chronic kidney disease, stage 3 unspecified; D63.8 Anemia in other chronic diseases classified elsewhere; Z79.02 Long term (current) use of antithrombotics/antiplatelets; Z87.891 Personal history of nicotine dependence; E03.9 Hypothyroidism, unspecified; I25.10 Atherosclerotic heart disease of native coronary artery without angina pectoris; I45.10 Unspecified right bundle-branch block; Z79.899 Other long term (current) drug therapy; Z79.890 Hormone replacement therapy; N40.0 Benign prostatic hyperplasia without lower urinary tract symptoms; K21.9 Gastro-esophageal reflux disease without esophagitis
CPT/HCPCS: 36415; 71045; 80048; 84484; 85025; 85027; 93005; 93306; 94668; 96372; 99221; 99252; 99285; A4216; G0378; G0463